=== PATIENT | female | born 1975 | race Hispanic/Latino ===

== ENCOUNTER 2018-02-24 15:18 | Outpatient (CLI) | payer OTHER | END 2018-02-24 15:19 | disposition home or self-care (01) | LOC: BICMAMMO 15:18 | PROVIDERS: ATTEND Family Medicine | DX: Z12.31 Encounter for screening mammogram for malignant neoplasm of breast (principal); Z80.3 Family history of malignant neoplasm of breast | CPT/HCPCS: 77063; 77067 ==

== ENCOUNTER 2020-07-04 09:32 | Outpatient (CLI) | payer OTHER ==
--- NOTE | 2020-07-04 10:37 | BD ---
EXAM: Bone densitometry using DEXA HISTORY: 44 yo female. Screening for osteoporosis FINDINGS: L1--bone mineral density 0.834 g/sq cm; T score -1.4 ; Z score 0.9 L2--bone mineral density 0.927 g/sq cm; T score -0.9 ; Z score -0.4 L3--bone mineral density 0.963 g/sq cm; T score -1.1 ; Z score -0.5 L4--bone mineral density 1.013 g/sq cm; T score -0.4 ; Z score 0.1 Total L1-L4--bone mineral density 0.938 g/sq cm; T score -1.0 ; Z score -0.4 Left femoral neck--bone mineral density0.642; T score -1.9 ; Z score -1.6 Total proximal left femur--bone mineral density 0.898; T score -0.4 ; Z score -0.3 IMPRESSION: Osteopenia
== END 2020-07-04 09:33 | disposition home or self-care (01) ==
LOC: BICMAMMO 09:32
PROVIDERS: ATTEND Internal Medicine Hematology & Oncology
DX: M85.89 Other specified disorders of bone density and structure, multiple sites (principal)
CPT/HCPCS: 77080

== ENCOUNTER 2020-08-29 10:01 | Day surgery (SDC) | payer OTHER ==
[~2020-08-29 10:01] MED LIST: ADMIXTURE FEE SC SCH; BORTEZOMIB SC SCH; Dexamethasone 4 MG TAB PO SCH; Zoledronic Acid 4 MG in Sodium Chloride 0.9% 100 ML IVPB SCH
[2020-08-29] MEDS ORDERED: Sodium Chloride 0.9% 20 ML ONE (10:38)
[2020-08-29 13:46] VITALS: BP 120/58; TEMP 97.5
== END 2020-08-29 13:48 | disposition home or self-care (01) ==
LOC: ONC/OP 10:01
PROVIDERS: ATTEND Internal Medicine Hematology & Oncology
DX: Z51.11 Encounter for antineoplastic chemotherapy (principal); C90.00 Multiple myeloma not having achieved remission; C79.51 Secondary malignant neoplasm of bone
CPT/HCPCS: 96365; 96401; J3489; J3490; J8540; J9041

== ENCOUNTER 2020-08-29 14:28 | Inpatient (IN) | payer OTHER ==
[2020-08-29 14:58] LABS: Hemoglobin 8.6 g/dL (12.0-16.0); Mean Corpuscular HGB CONC 33.8 g/dL (32.0-36.0); Mean Corpuscular Hemoglobin 32.7 pg (27.0-31.0); Mean Corpuscular Volume 96.9 fL (78.0-98.0); Mean Platelet Volume 6.6 fL (7.4-10.4); Platelet Count 290 thou/uL (130-400); RBC Distribution Width 11.7 % (11.5-14.5); Red Blood Cell (RBC) Count 2.63 mill/uL (4.20-5.40)
[2020-08-29 15:13] LABS: Band 8 % (5-11); Lymphocytes 14 % (21-51); MDiff Complete? YES; Monocytes 1 % (0-10); Myelocyte 1 % (0-0); Neutrophil 73 % (42-75); Ovalocytes SLIGHT = 2-5 cells (100X) (0-1/hpf); Platelet Morphology Comment Appears Adequate; Polychromasia SLIGHT = 2-3 cells (100X) (0-2/hpf); Reactive Lymphocytes 2 % (0-10)
[2020-08-29 15:19] LABS: ALT (SGPT) 9 U/L (8-55); AST (SGOT) 8 U/L (5-34); Albumin 3.6 g/dL (3.5-5.0); Alkaline Phosphatase 100 U/L (40-110); Anion Gap 19 mmol/L (10-20); BUN (Urea Nitrogen) 64 mg/dL (7.0-18.7); Bilirubin, Total 0.3 mg/dL (0.2-1.2); Calc. Creatinine Clearance 0 mL/min (70-130); Carbon Dioxide 19 mmol/L (22-29); Chloride 94 mmol/L (98-107); Globulin 3.2 g/dL (2.4-3.5); Glucose 381 mg/dL (70-105); Potassium 4.7 mmol/L (3.5-5.1); Protein, Total 6.8 g/dL (6.0-8.3); Sodium 127 mmol/L (136-145)
[2020-08-29 15:22] LABS: Calcium 13.9 mg/dL (7.8-10.44)
[2020-08-29 15:38] LABS: ALT (SGPT) 11 U/L (8-55); AST (SGOT) 9 U/L (5-34); Albumin 3.6 g/dL (3.5-5.0); Alkaline Phosphatase 105 U/L (40-110); Bilirubin, Direct 0.2 mg/dL (0.1-0.3); Bilirubin, Total 0.3 mg/dL (0.2-1.2); Lipase 37 U/L (8-78); Protein, Total 6.6 g/dL (6.0-8.3)
[2020-08-29 17:07] LABS: Bacteria/HPF 2+ HPF (None Seen); Bilirubin Negative (Negative); Blood, Urine 1+ (Negative); Clarity Clear (Clear); Glucose, Urine (Dipstick) 500 mg/dL (Negative); Ketone, Urine Negative (Negative); Leukocyte 75 Leu/uL (Negative); Nitrite Negative (Negative); Protein, Urine (Dipstick) 50 mg/dL (Neg-Trace); RBC/HPF 0-3 HPF (0-3); Specific Gravity, Urine 1.009 (1.002-1.036); Urobilinogen Normal mg/dL (Less than 2)
[2020-08-29 17:08] LABS: Pregnancy Test - Urine (BHCG) Negative (Negative); Pregu Control Background? CLEAR/WHITE (CLR/WHITE); Pregu Control Bar Appear? YES (CONTROL BAR); Specific Gravity 1.009 (1.002-1.036)
--- NOTE | 2020-08-29 17:56 | RAD ---
Left hip 2 views HISTORY: Hip pain. Multiple myeloma. FINDINGS: Mild joint space narrowing, osteophytosis, and subchondral sclerosis. Femoral head contour is maintained. There are innumerable ill-defined lytic lesions throughout all of the visualized osseous structures. The largest is at the proximal femoral shaft, 2.4 cm length. The lytic lesions in involve the acetabulum and femoral head without significant collapse evident. No fractures apparent. IMPRESSION : Mild osteoarthritic changes of the left hip. Extensive widespread myelomatous lesions. No fractures evident.
--- NOTE | 2020-08-29 18:01 | RAD ---
Left femur 2 views HISTORY: Pain. Myeloma. FINDINGS: Mild osteoarthritic changes of the hip and knee evident. No fractures visible. Extensive destructive lytic lesions are present throughout the femur, fibula, and partially visualize d pelvis. The largest is at the anterior lateral aspect of the distal femoral shaft, where there is a 3.1 cm long gap of cortical destruction. Large lesions also involve the greater and lesser trochanters of the hip. IMPRESSION : Severe myelomatous lytic disease. No fractures evident. The largest lesion involving the distal femur may put the patient at risk for a pathologic fracture. Discontinuing weightbearing might be considered.
--- NOTE | 2020-08-29 18:02 | PDOC.HHP ---
Hospitalist HPI - History of Present Illness Sent to the ER for acute renal failure and hypercalcemia History of Present Illness: This is a 44-year-old female with a past medical history of newly diagnosed multiple myeloma last July who presented to the ER after she was found to have a creatinine of 6 and a calcium of 14. The patient states that 2 months ago she was having pain in both of her legs. They did x-rays on her legs which appeared cancerous. She went to see an oncologist who did additional blood work which confirmed the diagnosis of multiple myeloma. This morning she had blood work at [facility] prior to starting chemotherapy and revlemid today with Dr. Perez. After she completed her therapy and went home, the lab called her and told her to come to the hospital. The patient was admitted in [facility] for acute renal failure and hypercalcemia in July. She does not recall what treatments she received, but she remembers that she was supposed to follow-up with a kidney doctor but did not get around to it. She denies dysuria, frequency, urgency, oliguria. She denies abdominal pain. She had nausea and vomiting 2 days ago which is since resolved. She denies diarrhea. She denies any history of kidney stones. Per Dr. Perez, she had a creatinine 06/18 which was 0.75 and calcium of 10.1. She received Velcade and zoledronic acid this morning. ED Course: Patient presented to the ER with normal vitals except for blood pressure of 159/84. Labs showed a sodium of 127, creatinine of 6.5, and calcium of 13.9. Patient was given 1 L fluid and was started on normal saline at 100 an hour. Patient was having left-sided hip pain in the left hip x-ray showed severe myelomatous disease in her left hip. Hospitalist ROS - Review of Systems Constitutional: denies: fever, chills Eyes: denies: pain, vision change ENT: reports: other (Left mandibular molar pain with chewing) Respiratory: denies: cough, dry, shortness of breath, pleuritic pain Cardiovascular: denies: chest pain, palpitations, orthopnea Gastrointestinal: reports: nausea (Few days ago). denies: abdominal pain, diarrhea, constipation Musculoskeletal: denies: neck pain, shoulder pain, arm pain Skin: denies: rash, lesions Neurological: denies: weakness, numbness Hospitalist History - Past Medical History Cardiac: reports: HTN, Hyperlipidemia Endocrine: reports: Diabetes - Past Surgical History Other Surgical History: None - Family History Other Family History: Mom had diabetes, hypertension, high cholesterol, breast cancer and lung cancer - Social History Smoking Status: Never smoker Alcohol: reports: None Drugs: reports: none Living Situation: Other (With ) - Exam General Appearance: NAD, awake alert Eye: PERRL, anicteric sclera ENT: normocephalic atraumatic, no oropharyngeal lesions Neck: no JVD Heart: RRR, no murmur, no gallops, no rubs Respiratory: CTAB, no wheezes, no rales, no ronchi Gastrointestinal: soft, non-tender, non-distended, normal bowel sounds Extremities: no cyanosis, no clubbing, no edema Skin: normal turgor, no lesions, no rashes Neurological: cranial nerve grossly intact, normal sensation to touch, no focal deficits, no new deficit Musculoskeletal: normal tone, normal strength, no muscle wasting Musculoskeletal - other findings: severe left hip tenderness, difficulty lifting left leg secondary to pain Psychiatric: normal affect, normal behavior, A&O x 3, oriented to person Hospitalist Results - Labs Result Diagrams: 08/29/20 14:49 08/29/20 14:49 Lab results: WBC 6.0 thou/uL (4.8-10.8) 08/29/20 14:49 Hgb 8.6 g/dL (12.0-16.0) L 08/29/20 14:49 Hct 25.4 % (36.0-47.0) L 08/29/20 14:49 MCV 96.9 fL (78.0-98.0) 08/29/20 14:49 Plt Count 290 thou/uL (130-400) 08/29/20 14:49 Band Neuts % (Manual) 8 % (5-11) 08/29/20 14:49 Sodium 127 mmol/L (136-145) L 08/29/20 14:49 Potassium 4.7 mmol/L (3.5-5.1) 08/29/20 14:49 Chloride 94 mmol/L (98-107) L 08/29/20 14:49 Carbon Dioxide 19 mmol/L (22-29) L 08/29/20 14:49 BUN 64 mg/dL (7.0-18.7) H 08/29/20 14:49 Creatinine 6.50 mg/dL (0.6-1.1) H 08/29/20 14:49 Glucose 381 mg/dL (70-105) H 08/29/20 14:49 Calcium 13.9 mg/dL (7.8-10.44) H* 08/29/20 14:49 Total Bilirubin 0.3 mg/dL (0.2-1.2) 08/29/20 14:49 Total Bilirubin 0.3 mg/dL (0.2-1.2) 08/29/20 14:49 AST 8 U/L (5-34) 08/29/20 14:49 AST 9 U/L (5-34) 08/29/20 14:49 ALT 9 U/L (8-55) 08/29/20 14:49 ALT 11 U/L (8-55) 08/29/20 14:49 Alkaline Phosphatase 100 U/L (40-110) 08/29/20 14:49 Alkaline Phosphatase 105 U/L (40-110) 08/29/20 14:49 Serum Total Protein 6.6 g/dL (6.0-8.3) 08/29/20 14:49 Serum Total Protein 6.8 g/dL (6.0-8.3) 08/29/20 14:49 Albumin 3.6 g/dL (3.5-5.0) 08/29/20 14:49 Albumin 3.6 g/dL (3.5-5.0) 08/29/20 14:49 Lipase 37 U/L (8-78) 08/29/20 14:49 Urine Ketones Negative mg/dL (Negative) 08/29/20 16:41 Urine Blood 1+ (Negative) A 08/29/20 16:41 Urine Nitrite Negative (Negative) 08/29/20 16:41 Ur Leukocyte Esterase 75 John/uL (Negative) A 08/29/20 16:41 Urine RBC 0-3 HPF (0-3) 08/29/20 16:41 Urine WBC 11-20 HPF (0-3) A 08/29/20 16:41 Ur Squamous Epith Cells 4-6 HPF (0-3) A 08/29/20 16:41 Urine Bacteria 2+ HPF (None Seen) A 08/29/20 16:41 - EKG Interpretation EKG: normal sinus rhythm Hospitalist H&P A/P - Plan Plan: Left hip X ray: Severe myelomatous lytic disease. This is a 44-year-old female with a past medical history of multiple myeloma, diabetes, hypertension who presented to the emergency room with hypercalcemia and acute renal failure that was discovered on labs drawn this morning at [facility] #Acute renal failure likely secondary to multiple myeloma #Hypercalcemia likely secondary to multiple myeloma -Patient presented with a creatinine of 6.5 and a calcium of 14. Unclear what her baseline creatinine was in July at [facility]. We will obtain those records. Her last creatinine prior to that was normal on 06/18 Plan: -We will give 2 L bolus and start on normal saline 100 mL. Check bilateral renal ultrasound. Nephrology was consulted. -She has received zoledronic acid this morning. We will start dexamethasone [address] Perez for hypercalcemia and will also give calcitonin one injection 200 mg per neurology. Repeat calcium level in the morning #Multiple myeloma -Status post Velcade and Zometa this morning. Per Dr. Perez, we will hold off on Revlimid due to her acute renal failure. Dr. Perez may consider giving her Cytoxan inpatient #Hyponatremia -Sodium is 127. Will hydrate with IV fluids and repeat BMP #Left hip pain -Left hip x-ray shows extensive myelomatous lesions. Will order PT and make her nonweightbearing to her left leg #Anemia -likely secondary to multiple myeloma -Hemoglobin 8.6, will continue to trend. Check B12 folate TSH in the morning. Check iron panel in the morning #Type 2 diabetes - insulin sliding scale, fingersticks AC at bedtime - continue gabapentin #Hypertension -Hold Imdur Dispo: admit to tele, then transfer to oncology when calcium improves Code status: full code
[2020-08-29] MEDS ORDERED: Senokot S 8.6-50 MG TAB PO PRN (18:04)
[2020-08-29] MEDS ORDERED: Bisacodyl 5 MG TAB PO PRN (18:04)
[2020-08-29] MEDS ORDERED: Sodium Chloride 0.9% 1,000 ML IV SCH (19:00)
[2020-08-29] MEDS ORDERED: Calcitonin,Salmon,Synthetic 200 UNITS/ML MDV SC SCH ×2 (19:45)
[2020-08-29] MEDS: Sodium Chloride 0.9% 1,000 ML IV SCH ×3 (19:57→22:38)
--- NOTE | 2020-08-29 20:36 | ULT ---
Renal sonogram HISTORY: Renal failure. FINDINGS: Right kidney is 10.6 cm length and left is 11.0 cm. Each has a normal appearance without ev idence of mass, stone, or hydronephrosis. Urinary bladder has a normal appearance. Bilateral ureteral jets documented. IMPRESSION : No abnormalities are demonstrated.
[2020-08-29] MEDS: Heparin 5,000 UNITS/ML VIAL SC SCH (21:52)
[2020-08-29] MEDS ORDERED: Dextrose 5% in Water 1,000 ML IV PRN (22:14)
[2020-08-29] MEDS ORDERED: Dextrose 50% Abboject 50 ML SYRINGE SLOW IVP PRN (22:14)
[2020-08-29] MEDS: HYDROcodone/Acetaminophen 5/325 mg Tablet PO PRN (22:26)
[2020-08-29] MEDS: HumaLOG 300 UNITS/3 ML VIAL SC PRN (22:41)
--- NOTE | 2020-08-30 00:56 | CON ---
DATE OF CONSULTATION: 08/29/2020 CONSULTING PHYSICIAN: Adriana Garcia MD REASON FOR CONSULTATION: Hypercalcemia, acute kidney injury. REASON FOR ADMISSION: Abnormal labs. HISTORY OF PRESENT ILLNESS: This is a 44-year-old female with history of multiple myeloma, hypertension, hyperlipidemia, came to the hospital with abnormal labs. She is on treatment with Dr. Perez and was found to have abnormal labs, elevated creatinine and was sent to the hospital. She complains of constipation. No fever or chills. No nausea, vomiting, or chest pain. She has been having poor p.o. intake in the last few days. Her last creatinine on 06/18 was 0.75, calcium was 10.1. She received alkaline zoledronic acid this morning. PAST MEDICAL HISTORY: Positive for hypertension, hyperlipidemia, and diabetes. PAST SURGICAL HISTORY: None. HOME MEDICATIONS: Reviewed. ALLERGIES: NO KNOWN DRUG ALLERGIES. SOCIAL HISTORY: No smoking, alcohol, or illicit drug use. FAMILY HISTORY: Positive for diabetes. REVIEW OF SYSTEMS: CONSTITUTIONAL: Negative for weight loss or gain, ability to conduct usual activities. SKIN: Negative for rash, itching. EYES: Negative for double vision, pain. ENT/MOUTH: Negative for nose bleeding, neck stiffness, pain, tenderness. CARDIOVASCULAR: Negative for palpitations, dyspnea on exertion, orthopnea. RESPIRATORY: Negative for shortness of breath, wheezing, cough, hemoptysis, fever or night sweats. GASTROINTESTINAL: Negative for poor appetite, abdominal pain, heartburn, nausea, vomiting, constipation, or diarrhea. GENITOURINARY: Negative for urgency, frequency, dysuria, nocturia. MUSCULOSKELETAL: Negative for pain, swelling. NEUROLOGIC/PSYCHIATRIC: Negative for anxiety, depression. ALLERGY/IMMUNOLOGIC: Negative for skin rash, bleeding tendency. PHYSICAL EXAMINATION: GENERAL: This is a well-built female, in no apparent distress. VITAL SIGNS: Reviewed. HEENT: Atraumatic, normocephalic. Oral mucosa is moist. NECK: Supple. CV: S1 and S2 heard. RESPIRATORY: Clear. GI: Abdomen is soft. MUSCULOSKELETAL: No tenderness. No edema. DERMATOLOGIC: No skin rash. NEUROLOGIC: Alert and awake. PSYCHIATRIC: Mood and affect normal. LABORATORY DATA: Hemoglobin 8.6, potassium 4.7, BUN 64, creatinine 6.5, and calcium 13.9. ASSESSMENT AND PLAN: 1. Acute kidney injury, most likely volume depletion. Agree with hydration and consider calcitonin and also dexamethasone. 2. The patient already got zoledronic acid. 3. Hyponatremia. 4. Acidosis. 5. Azotemia. 6. Hypercalcemia. 7. Edema. 8. Hypertension. 9. Anemia. 10. History of multiple myeloma. 11. Proteinuria. 12. Continue hydration. Monitor calcium. We will give a dose of calcitonin and dexamethasone too. Plan discussed with the primary team. Thank you for the consult. We will follow. Job ID: [id number]
[2020-08-30 04:33] LABS: #Lymphocytes 0.4 thou/uL (1.20-3.40); #Monocytes 0.4 thou/uL (0.11-0.59); #Neutrophils 3.5 thou/uL (1.40-6.50); %Eosinophils 0.3 % (0.0-10.0); %Lymphocytes 9.6 % (21.0-51.0); %Monocytes 9.1 % (0.0-10.0); Hemoglobin 7.1 g/dL (12.0-16.0); Mean Corpuscular HGB CONC 33.2 g/dL (32.0-36.0); Mean Corpuscular Hemoglobin 31.8 pg (27.0-31.0); Mean Platelet Volume 6.8 fL (7.4-10.4); Platelet Count 259 thou/uL (130-400); RBC Distribution Width 11.8 % (11.5-14.5); Red Blood Cell (RBC) Count 2.24 mill/uL (4.20-5.40); White Blood Cell (WBC) Count 4.4 thou/uL (4.8-10.8)
[2020-08-30] MEDS: Sodium Chloride 0.9% 1,000 ML IV SCH ×4 (04:43→20:29)
[2020-08-30 04:48] LABS: Uric Acid 10.6 mg/dL (2.6-6.0)
[2020-08-30 04:49] LABS: Phosphorus 7.5 mg/dL (2.3-4.7)
[2020-08-30 05:03] LABS: ALT (SGPT) 8 U/L (8-55); AST (SGOT) 20 U/L (5-34); Albumin 2.9 g/dL (3.5-5.0); Alkaline Phosphatase 87 U/L (40-110); Anion Gap 16 mmol/L (10-20); BUN (Urea Nitrogen) 69 mg/dL (7.0-18.7); Bilirubin, Total 0.2 mg/dL (0.2-1.2); Calc. Creatinine Clearance 11 mL/min (70-130); Calcium 10.5 mg/dL (7.8-10.44); Carbon Dioxide 17 mmol/L (22-29); Chloride 102 mmol/L (98-107); Globulin 2.5 g/dL (2.4-3.5); Glucose 342 mg/dL (70-105); Iron 74 ug/dL (50-170); Iron Binding Capacity, Total 188 mcg/dL (265-497); Potassium 4.4 mmol/L (3.5-5.1); Protein, Total 5.4 g/dL (6.0-8.3); Sodium 131 mmol/L (136-145)
[2020-08-30 05:09] LABS: Ferritin 273.61 ng/mL (10-291)
[2020-08-30 06:02] LABS: Thyroid Stimulating Hormone 0.881 uIU/mL (0.35-4.94)
[2020-08-30] MEDS: HumaLOG 300 UNITS/3 ML VIAL SC PRN ×3 (06:13→16:21)
[2020-08-30] MEDS: Heparin 5,000 UNITS/ML VIAL SC SCH ×2 (08:54→20:29)
[2020-08-30] MEDS ORDERED: Dexamethasone 4 MG TAB PO SCH ×2 (09:00→11:30)
[2020-08-30] MEDS ORDERED: Prevnar 13-Val Conj/PF 0.5 ML SYRINGE IM ONE (09:00)
[2020-08-30] MEDS ORDERED: Enoxaparin Sodium 30 MG/0.3 ML SYRINGE SC SCH (09:00)
[2020-08-30] MEDS ORDERED: FLU VACC QS2020-21(6MOS UP)/PF 60 MCG/0.5 ML SYRINGE IM ONE (09:00)
[2020-08-30 10:01] LABS: SARS-CoV-2 MS2 Positive; SARS-CoV-2 N Gene Negative; SARS-CoV-2 S Gene Negative; SARS-CoV-2 by NAA Not Detected (NotDetected); SARS-CoV-2 orf1ab Negative
[2020-08-30] MEDS: HYDROcodone/Acetaminophen 5/325 mg Tablet PO PRN (10:21)
--- NOTE | 2020-08-30 13:08 | PDOC.HOSPP ---
- Subjective Encounter Date: 08/30/20 Encounter Time: 09:10 Subjective: Patient spouse is at bedside. Both of them Croatian-speaking with limited Canadian. I was able to communicate with him through the [employer] victim witness administrator. Patient is wondering about whether she will be getting some kind of compression stocking for her left leg. - Objective Vital Signs & Weight: Vital Signs (12 hours) Temp Pulse Resp BP Pulse Ox 08/30/20 11:11 98.5 F 85 18 95/51 L 97 08/30/20 07:51 98.2 F 88 18 111/55 L 96 08/30/20 04:00 98.0 F 86 16 106/54 L 93 L Weight Admit Weight 128 lb 4.8 oz Weight 128 lb 4.8 oz I&O: 08/29/20 08/30/20 08/31/20 06:59 06:59 06:59 Intake Total 1885 Output Total 900 Balance 985 Result Diagrams: 08/30/20 04:22 08/30/20 04:22 Additional Labs: Accuchecks 08/30/20 08/30/20 08/29/20 10:41 06:02 21:13 POC Glucose 227 H 314 H 367 H Hospitalist ROS - Medication Medications: Active Medications Generic Name Dose Route Start Last Admin Trade Name Freq PRN Reason Stop Dose Admin Hydrocodone Bitart/Acetaminophen 1 tab 08/29/20 18:04 08/30/20 10:21 Hydrocodone/Acetaminophen 5/325 Mg Tablet PO 1 tab Q4H PRN Administration Moderate to Severe Pain (6-10) Dexamethasone 20 mg 08/30/20 11:30 08/30/20 11:52 Dexamethasone 4 Mg Tab PO 08/30/20 14:00 20 mg NOW SANTOS Administration Heparin Sodium (Porcine) 5,000 units 08/29/20 21:00 08/30/20 08:54 Heparin 5,000 Units/Ml Vial SC 5,000 units BID SANTOS Administration Sodium Chloride 1,000 mls @ 75 mls/hr 08/30/20 09:54 08/30/20 10:08 Normal Saline 0.9% IV 699 mls .[id number] SANTOS Administration Insulin Human Lispro 0 units 08/29/20 22:14 08/30/20 11:15 Humalog 300 Units/3 Ml Vial SC 4 unit .MODERATE SLIDING SC PRN Administration Moderate Correctional Scale Sodium Chloride 10 ml 08/29/20 21:00 08/30/20 08:54 Flush - Normal Saline 10 Ml Syringe IVF Not Given Q12HR SANTOS - Exam General Appearance: NAD, awake alert Eye: PERRL ENT: normocephalic atraumatic Neck: supple Heart: RRR, normal peripheral pulses Respiratory: CTAB Gastrointestinal: soft, normal bowel sounds Extremities: 1+ LE edema Neurological: no focal deficits Psychiatric: A&O x 3 Hosp A/P - Plan 44-year-old female with a past medical history of multiple myeloma, diabetes, hy pertension came w.. hypercalcemia and acute renal failure that was discovered on labs drawn this morning at [facility] #Acute renal failure likely secondary to multiple myeloma #Hypercalcemia likely secondary to multiple myeloma -Patient presented with a creatinine of 6.5 and a calcium of 14. Her last creatinine prior to that was normal on 06/18 Plan: -We will give 2 L bolus and start on normal saline 100 mL. Check bilateral renal ultrasound. Nephrology was consulted. -She has received zoledronic acid this morning. We will start dexamethasone [address] Perez for hypercalcemia and will also give calcitonin one inje ction 200 mg per neurology. Repeat calcium level in the morning -Renal ultrasound no abnormalities noted. - little improvement in creatinine level today. #Multiple myeloma -Status post Velcade and Zometa this morning. Per Dr. Perez, we will hold off on Revlimid due to her acute renal failure. Dr. Perez may consider giving her Cytoxan inpatient #Hyponatremia -Sodium is 127. Will hydrate with IV fluids and repeat BMP #Left hip pain -Left hip x-ray shows extensive myelomatous lesions. Will order PT and make her nonweightbearing to her left leg Mild osteoarthritis changes #Anemia -likely secondary to multiple myeloma -Hemoglobin 8.6, will continue to trend. #Type 2 diabetes - insulin sliding scale, fingersticks AC at bedtime - continue gabapentin #Hypertension -Hold Imdur B12 folate TSH are in normal range. Vitamin D deficiency -Started her on p.o. supplement Dispo: admit to tele, then transfer to oncology when calcium improves Code status: full code
[2020-08-30 13:48] LABS: Hemoglobin 7.5 g/dL (12.0-16.0)
[2020-08-30] MEDS ORDERED: CYCLOPHOSPHAMIDE IVPB SCH (15:15)
[2020-08-30] MEDS ORDERED: Ondansetron HCl/PF 8 MG in Sodium Chloride 0.9% 50 ML IVPB SCH (15:15)
[2020-08-30] MEDS ORDERED: SODIUM CHLORIDE 0.9% IVPB SCH (15:15)
--- NOTE | 2020-08-30 17:06 | PRG ---
DATE OF SERVICE: 08/30/2020 SUBJECTIVE: Patient was seen and examined at bedside and overnight events noted. Patient denies any shortness of breath or chest pain or palpitation. No history of nausea or vomiting or diarrhea or fever or chills or cramps. OBJECTIVE: GENERAL: This is a well-built female, in no apparent distress. VITAL SIGNS: Temperature 99.5. Heart rate 97. Respiratory rate 18. Blood pressure 129/60. HEENT: Atraumatic, normocephalic. Oral mucosa is moist. NECK: Supple. CARDIOVASCULAR: S1, S2 heard. Rate and rhythm regular. RESPIRATORY: Clear to auscultation. GASTROINTESTINAL: Abdomen is soft. MUSCULOSKELETAL: No tenderness. No edema. DERMATOLOGIC: No skin rash. NEUROLOGIC: Alert and awake and oriented x3. No focal neurologic deficits. Moving all the extremities. PSYCHIATRIC: Mood and affect normal. LABORATORY DATA: Potassium 4.4, BUN is 69, creatinine is 5.8, calcium is 10.5 from 14, and phosphorus 7.5. ASSESSMENT AND PLAN: 1. Acute kidney injury secondary to volume depletion and hypercalcemia, getting better with IV hydration. We will monitor. 2. Calcium level is much better. 3. Hypercalcemia, much better. 4. History of multiple myeloma. 5. Acidosis. 6. Azotemia. 7. Anemia secondary to myeloma. 8. Proteinuria. We will monitor labs. Job ID: [id number]
[2020-08-30] MEDS: Insulin Regular 300 UNITS/3 ML VIAL SC PRN (20:28)
[2020-08-31] MEDS: HYDROcodone/Acetaminophen 5/325 mg Tablet PO PRN (02:06)
[2020-08-31 02:47] LABS: Creatinine, Urine Less than 20.00 mg/dL (47-110); Protein, Urine Random Quant 106 mg/dL (1-14)
[2020-08-31 04:28] LABS: #Eosinphils 0.1 thou/uL (0.0-0.7); #Lymphocytes 0.1 thou/uL (1.20-3.40); #Monocytes 0.1 thou/uL (0.11-0.59); #Neutrophils 2.9 thou/uL (1.40-6.50); %Eosinophils 1.8 % (0.0-10.0); %Monocytes 2.3 % (0.0-10.0); %Neutrophils 91.9 % (42.0-75.0); Hemoglobin 7.4 g/dL (12.0-16.0); Mean Corpuscular HGB CONC 34.4 g/dL (32.0-36.0); Mean Corpuscular Hemoglobin 33.3 pg (27.0-31.0); Mean Corpuscular Volume 96.7 fL (78.0-98.0); Mean Platelet Volume 7.1 fL (7.4-10.4); Platelet Count 217 thou/uL (130-400); RBC Distribution Width 11.8 % (11.5-14.5); Red Blood Cell (RBC) Count 2.23 mill/uL (4.20-5.40); White Blood Cell (WBC) Count 3.1 thou/uL (4.8-10.8)
[2020-08-31 05:13] LABS: Anion Gap 20 mmol/L (10-20); BUN (Urea Nitrogen) 77 mg/dL (7.0-18.7); Calc. Creatinine Clearance 11 mL/min (70-130); Calcium 8.9 mg/dL (7.8-10.44); Carbon Dioxide 12 mmol/L (22-29); Chloride 102 mmol/L (98-107); Glucose 320 mg/dL (70-105); Potassium 5.3 mmol/L (3.5-5.1); Sodium 129 mmol/L (136-145)
[2020-08-31] MEDS: HumaLOG 300 UNITS/3 ML VIAL SC PRN ×3 (05:28→17:01)
--- NOTE | 2020-08-31 05:29 | CON ---
DATE OF CONSULTATION: REASON FOR CONSULTATION: Myeloma. HISTORY OF PRESENT ILLNESS: A 44-year-old female with lambda light chain myeloma, presenting to the hospital for acute kidney injury and hypercalcemia. The patient initially presented with leg pain in May 2020 and found to have multiple lytic lesions, so she was referred to me and was diagnosed with lambda light chain myeloma. At that time, her urine lambda light chains were 8936, and serum lambda light chains were 2080, and she had a creatinine of 0.75 and hemoglobin of 12. She is planned to start Velcade, Revlimid, and dexamethasone. However, she did not have insurance and took a very long time to get financial assistance. She came in Tuesday to finally start treatment and received Velcade and Zometa and went home. Later yesterday, her labs returned and her hemoglobin were found to be 7.7, and creatinine was found to be 6.62 with a calcium level of 13.7 and albumin of 3.3, so corrected over 14. She was called and told to go to the emergency room and she was admitted to telemetry. She has received a few liters of normal saline and creatinine has improved to 5.88 this morning and calcium has improved to 10.5, though with an albumin of 2.9, still elevated to approximately 11.4. She complains of pain in her chest and clavicles in addition to severe leg pain, especially on her left leg, which hurts to move. She is unable to ambulate secondary to pain, but does have reserve of strength. X-rays of the hip and leg revealed multiple lytic lesions, but no fractures. Her left femur is high risk for fracture, so may be having a brace placed to prevent her from moving it. She denies any other symptoms at this time other than fatigue. Her is at the bedside. REVIEW OF SYSTEMS: Ten-point review of systems negative except as per HPI. PAST MEDICAL HISTORY: Diabetes, hypertension, hyperlipidemia, and myeloma. PAST SURGICAL HISTORY: None. FAMILY HISTORY: Breast cancer and lung cancer in her family. SOCIAL HISTORY: No smoking or alcohol. Lives with her . CURRENT MEDICATIONS: Reviewed. PHYSICAL EXAMINATION: VITAL SIGNS: Temperature 98.2, pulse 88, respirations 18, saturating 96% on room air, and blood pressure 111/55. GENERAL APPEARANCE: The patient is lying in bed, in no acute distress. HEENT: Normocephalic and atraumatic. RESPIRATIONS: Clear to auscultation bilaterally. CARDIOVASCULAR: S1 and S2. Regular rate and rhythm with a 2/6 systolic ejection murmur. ABDOMEN: Soft, nondistended, and nontender. NEUROLOGIC: Cranial nerves II through XII are grossly intact, and she can move bilateral lower extremities. The left is restricted due to pain. PSYCHIATRIC: Awake, alert, and oriented x3. LABORATORY DATA: White blood cells 4.4, hemoglobin 7.1, and platelets 259. Uric acid 10.6, calcium 10.5 with albumin to 2.9, creatinine 5.88, potassium 4.4, and phosphorus 7.5. ASSESSMENT AND PLAN: A 44-year-old female with lambda light chain myeloma with hypercalcemia and acute kidney injury. 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 We will continue IV fluids for kidney dysfunction, hypercalcemia. She has already received hypercalcemia and I believe a dose of calcitonin. She is also receiving steroids, which should help both her kidneys and her hypercalcemia. She has received Velcade and advised to hold Revlimid due to kidney function. We will attempt to get a dose of Cytoxan inpatient since we cannot use Revlimid for her treatment, but unknown if this will dramatically improve her kidney function, but at least will treat her underlying myeloma. We will increase dexamethasone to 40 mg per day for another few days and if she has improvement or resolution of her kidney dysfunction, she will be able to be discharged. The patient and state understanding. We will follow closely with you. Job ID: [id number] [facility]
[2020-08-31] MEDS: Dexamethasone 4 MG TAB PO SCH (09:35)
[2020-08-31] MEDS: Heparin 5,000 UNITS/ML VIAL SC SCH ×2 (09:37→20:29)
[2020-08-31] MEDS: Ondansetron PF 4 MG/2 ML Vial IVP PRN (09:43)
--- NOTE | 2020-08-31 11:43 | PDOC.MOPN ---
Interval History: Pt feeling ok today. Chest pain persists only on movement. Left leg pain slightly improved. Advised her to not weight-bear on her left leg due to risk for fracture. - Vital Signs Vital Signs: Vital Signs (12 hours) Temp Pulse Resp BP Pulse Ox 08/31/20 07:05 97.7 F 73 18 134/64 98 08/31/20 04:00 98.0 F 77 16 130/64 97 Weight Admit Weight 128 lb 4.8 oz Weight 128 lb 4.8 oz - Physical Exam General: Alert, Oriented x3, Cooperative HEENT: EOMI Lungs: Normal air movement Cardiovascular: Regular rate Extremities: Other (limited movement of left leg due to pain) Neurological: Cranial nerves 3-12 NL - Labs Result Diagrams: 08/31/20 04:10 08/31/20 04:10 Lab results: Laboratory Results - last 24 hr 08/31/20 10:41: POC Glucose 339 H 08/31/20 05:26: POC Glucose 283 H 08/31/20 04:10: WBC 3.1 L, RBC 2.23 L, Hgb 7.4 L, Hct 21.6 L, MCV 96.7, MCH 33.3 H, MCHC 34.4, RDW 11.8, Plt Count 217, MPV 7.1 L, Neutrophils % 91.9 H, Lymphocytes % 4.0 L, Monocytes % 2.3, Eosinophils % 1.8, Basophils % 0.0, Neutrophils # 2.9, Lymphocytes # 0.1 L, Monocytes # 0.1 L, Eosinophils # 0.1, Basophils # 0.0 08/31/20 04:10: Sodium 129 L, Potassium 5.3 H, Chloride 102, Carbon Dioxide 12 L, Anion Gap 20, BUN 77 H, Creatinine 5.91 H, Estimated GFR (MDRD) 8, Glucose 320 H, Calcium 8.9 08/30/20 20:13: POC Glucose 268 H 08/30/20 16:17: POC Glucose 277 H 08/30/20 13:31: Hgb 7.5 L, Hct 20.9 L 08/30/20 02:04: U Random Total Protein 106 H, Urine Creatinine Less than 20.00 L A/P - Problem (1) Myeloma Current Visit: Yes Code(s): C90.00 - MULTIPLE MYELOMA NOT HAVING ACHIEVED REMISSION Status: Acute (2) Hypercalcemia Current Visit: Yes Code(s): E83.52 - HYPERCALCEMIA Status: Acute (3) Acute kidney failure Current Visit: Yes Status: Acute (4) Anemia Current Visit: Yes Code(s): D64.9 - ANEMIA, UNSPECIFIED Status: Acute - Plan Plan: -- C1D3 of Velcade: s/p 1 dose of Cytoxan 900 mg/m2 yesterday (Velcade D1,4,8,11) -- hypercalcemia resolved -- JEFFRY not improving Cont IVF Dex 40 mg qday x 5 days total: last dose Tuesday, then on days of Velcade Velcade tomorrow Continue holding Revlimid will d/w RadOnc if palliative XRT to left femur can be done for pain control and reduce risk of fracture
[2020-08-31] MEDS ORDERED: Sodium Bicarbonate 150 MEQ in Dextrose 5% in Water 1,000 ML IV SCH (11:45)
--- NOTE | 2020-08-31 12:53 | PDOC.HOSPP ---
- Subjective Encounter Date: 08/31/20 Encounter Time: 09:45 Subjective: I have explained to the patient that she needs to be on steroid and probably another 2 to 3days. His kidney function has not improved much creatinine around 5.9. - Objective Vital Signs & Weight: Vital Signs (12 hours) Temp Pulse Resp BP Pulse Ox 08/31/20 07:05 97.7 F 73 18 134/64 98 08/31/20 04:00 98.0 F 77 16 130/64 97 Weight Admit Weight 128 lb 4.8 oz Weight 128 lb 4.8 oz I&O: 08/30/20 08/31/20 09/01/20 06:59 06:59 06:59 Intake Total 1885 Output Total 900 Balance 985 Result Diagrams: 08/31/20 04:10 08/31/20 04:10 Additional Labs: Accuchecks 08/31/20 08/31/20 08/30/20 10:41 05:26 20:13 POC Glucose 339 H 283 H 268 H 08/30/20 16:17 POC Glucose 277 H Hospitalist ROS - Medication Medications: Active Medications Generic Name Dose Route Start Last Admin Trade Name Freq PRN Reason Stop Dose Admin Hydrocodone Bitart/Acetaminophen 1 tab 08/29/20 18:04 08/31/20 02:06 Hydrocodone/Acetaminophen 5/325 Mg Tablet PO 1 tab Q4H PRN Administration Moderate to Severe Pain (6-10) Dexamethasone 40 mg 08/31/20 09:00 08/31/20 09:35 Dexamethasone 4 Mg Tab PO 09/02/20 09:01 40 mg DAILY SANTOS Administration Heparin Sodium (Porcine) 5,000 units 08/29/20 21:00 08/31/20 09:37 Heparin 5,000 Units/Ml Vial SC 5,000 units BID SANTOS Administration Insulin Human Lispro 0 units 08/29/20 22:14 08/31/20 11:35 Humalog 300 Units/3 Ml Vial SC 8 unit .MODERATE SLIDING SC PRN Administration Moderate Correctional Scale Insulin Human Regular 0 units 08/29/20 22:14 08/30/20 20:28 Insulin Regular 300 Units/3 Ml Vial SC 3 unit .BEDTIME SLIDING SC PRN Administration Bedtime Correctional Scale Ondansetron HCl 4 mg 08/29/20 18:04 08/31/20 09:43 Ondansetron Pf 4 Mg/2 Ml Vial IVP 4 mg Q6H PRN Administration Nausea/Vomiting Sodium Chloride 10 ml 08/29/20 21:00 08/31/20 10:05 Flush - Normal Saline 10 Ml Syringe IVF 10 ml Q12HR SANTOS Administration - Exam General Appearance: NAD, awake alert Eye: PERRL ENT: normocephalic atraumatic Neck: supple Heart: RRR, normal peripheral pulses Respiratory: CTAB, normal chest expansion Gastrointestinal: soft, normal bowel sounds Extremities: no edema Skin: normal turgor Neurological: cranial nerve grossly intact, no focal deficits Musculoskeletal: generalized weakness Psychiatric: normal affect, normal behavior, A&O x 3 Hosp A/P - Plan 44-year-old female with a past medical history of multiple myeloma, diabetes, hypertension came w.. hypercalcemia and acute renal failure that was discovered on labs drawn this morning at [facility] #Acute renal failure likely secondary to multiple myeloma Cast nephropathy #Hypercalcemia likely secondary to multiple myeloma -Patient presented with a creatinine of 6.5 and a calcium of 14. Her last creatinine prior to that was normal on 06/18 Plan: -We will give 2 L bolus and start on normal saline 100 mL. Check bilateral renal ultrasound. Nephrology was consulted. -She has received zoledronic acid this morning. We will start dexamethasone [address] Perez for hypercalcemia and will also give calcitonin one injection 200 mg per neurology. Repeat calcium level in the morning -Renal ultrasound no abnormalities noted. - little improvement in creatinine level today. -Trial of dexamethasone 40 mg daily for 5 days.--Last dose next Tuesday. -Dr. Perez started her on Velcade Radiation oncology consult placed for possible palliative radiation treatment to left femur osteolytic lesions #Multiple myeloma -Status post Zometa and on Velcade . Per Dr. Perez, we will hold off on Revlimid due to her acute renal failure. #Hyponatremia -. Will hydrate with IV fluids and repeat BMP -Sodium did not improve. It remains the same. However I noticed that IV fluid has been discontinued. Will follow along with the renal. #Left hip pain -Left hip x-ray shows extensive myelomatous lesions. Will order PT and make her nonweightbearing to her left leg Mild osteoarthritis changes #Anemia -likely secondary to multiple myeloma -Hemoglobin 8.6, will continue to trend. #Type 2 diabetes We will follow-up on A1c. Not optimally controlled. Initiating scheduled insulin - insulin sliding scale, fingersticks AC at bedtime - continue gabapentin #Hypertension -Hold Imdur B12 folate TSH are in normal range. Vitamin D deficiency -Started her on p.o. supplement Dispo: admit to tele, then transfer to oncology when calcium improves Code status: full code
--- NOTE | 2020-08-31 14:34 | PRG ---
DATE OF SERVICE: 08/31/2020 SUBJECTIVE: Patient was seen and examined at bedside and overnight events noted. Patient denies any shortness of breath or chest pain or palpitation. No history of nausea or vomiting or diarrhea or fever or chills or cramps. OBJECTIVE: GENERAL: This is a well-built female, in no apparent distress. VITAL SIGNS: Temperature 97.7. Heart rate 73. Respiratory rate 18. Blood pressure 134/64. HEENT: Atraumatic, normocephalic. Oral mucosa is moist. NECK: Supple. CARDIOVASCULAR: S1, S2 heard. Rate and rhythm regular. RESPIRATORY: Clear to auscultation. GASTROINTESTINAL: Abdomen is soft. MUSCULOSKELETAL: No tenderness. No edema. DERMATOLOGIC: No skin rash. NEUROLOGIC: Alert and awake and oriented x3. No focal neurologic deficits. Moving all the extremities. PSYCHIATRIC: Mood and affect normal. LABORATORY DATA: Potassium 5.3, BUN 77, and creatinine is 5.9. ASSESSMENT AND PLAN: 1. Acute kidney injury on chronic kidney disease. We will continue on IV fluids. We will change IV fluids to bicarb drip. 2. Acidosis. 3. Hyponatremia. 4. Hyperkalemia. We will have bicarb drip. 5. Proteinuria, most likely from multiple myeloma. 6. History of multiple myeloma. 7. Anemia secondary to myeloma. Plan is to continue on bicarb drip. Monitor labs. Follow with Hem/Onc for myeloma therapy. Job ID: [id number]
[2020-08-31] MEDS: NPH, Human Insulin Isophane 300 UNIT/3 ML VIAL SC SCH (20:29)
[2020-08-31] MEDS: Insulin Regular 300 UNITS/3 ML VIAL SC PRN (20:34)
[2020-09-01] MEDS: HYDROcodone/Acetaminophen 5/325 mg Tablet PO PRN ×3 (00:54→21:32)
[2020-09-01 04:50] LABS: Hemoglobin A1c 8.9 % (4.0-6.0)
[2020-09-01 05:03] LABS: Anion Gap 20 mmol/L (10-20); BUN (Urea Nitrogen) 104 mg/dL (7.0-18.7); Calc. Creatinine Clearance 11 mL/min (70-130); Calcium 7.9 mg/dL (7.8-10.44); Carbon Dioxide 16 mmol/L (22-29); Chloride 97 mmol/L (98-107); Glucose 439 mg/dL (70-105); Potassium 4.7 mmol/L (3.5-5.1); Sodium 128 mmol/L (136-145)
[2020-09-01] MEDS: HumaLOG 300 UNITS/3 ML VIAL SC PRN ×3 (06:06→17:11)
--- NOTE | 2020-09-01 09:18 | PRG ---
DATE OF SERVICE: 09/01/2020 SUBJECTIVE: A 44-year-old female being seen for end-stage kidney disease. The patient denied nausea, vomiting, chest pain. OBJECTIVE: GENERAL: On exam, the patient is awake and alert. VITAL SIGNS: Afebrile, pulse 75, breathing at 16, blood pressure 139/67. HEENT: Head normocephalic and atraumatic. Eyes intact, no ulcers. Nose intact, no ulcers. Ears intact, no ulcers. NECK: Supple. No JVD. CHEST: Symmetrical and clear. CARDIOVASCULAR: Shows S1 and S2, no rub, no murmur. GASTROINTESTINAL: Abdomen is soft, bowel sounds positive. EXTREMITIES: Show no edema or ulcers. SKIN: Shows no rash or petechiae. MUSCULOSKELETAL: Shows no joint swelling or stiffness. GENITOURINARY: Shows no [place] or CVA tenderness. NEUROLOGIC: Motor intact. Cranial nerves intact. LABORATORY DATA: Reviewed. IMPRESSION: Acute kidney injury on chronic kidney disease, stable. no urgent indication for dialysis. We will follow labs closely. Job ID: [id number]
[2020-09-01 09:36] LABS: Kappa Light Chains 19.5 mg/L (3.3-19.4); Lambda Light Chain 13412.3 mg/L (5.7-26.3)
[2020-09-01] MEDS: Dexamethasone 4 MG TAB PO SCH (09:40)
[2020-09-01] MEDS: Heparin 5,000 UNITS/ML VIAL SC SCH ×2 (09:42→21:09)
[2020-09-01] MEDS: NPH, Human Insulin Isophane 300 UNIT/3 ML VIAL SC SCH ×2 (09:42→21:09)
[2020-09-01] MEDS: Sodium Chloride 1 GM TAB PO SCH ×3 (09:50→21:12)
--- NOTE | 2020-09-01 13:29 | PDOC.HOSPP ---
- Subjective Encounter Date: 09/01/20 Encounter Time: 10:20 Subjective: Patient wants to know whether she can get better. Explained through [employer] interpreter. Radiation oncology consult pending. Her sugar is still high. She has A1c of 8.9. - Objective Vital Signs & Weight: Vital Signs (12 hours) Temp Pulse Resp BP Pulse Ox 09/01/20 11:23 97.9 F 70 15 112/61 97 09/01/20 07:32 97.7 F 76 13 147/73 H 97 09/01/20 04:00 97.9 F 75 16 139/67 Weight Admit Weight 128 lb 4.8 oz Weight 128 lb 4.8 oz I&O: 08/31/20 09/01/20 09/02/20 06:59 06:59 06:59 Intake Total 1520 Output Total 1225 Balance 295 Result Diagrams: 08/31/20 04:10 09/01/20 04:19 Additional Labs: Accuchecks 09/01/20 09/01/20 08/31/20 11:08 06:04 20:32 POC Glucose 270 H 360 H 481 H 08/31/20 16:53 POC Glucose 487 H Hospitalist ROS - Medication Medications: Active Medications Generic Name Dose Route Start Last Admin Trade Name Freq PRN Reason Stop Dose Admin Hydrocodone Bitart/Acetaminophen 1 tab 08/29/20 18:04 09/01/20 09:44 Hydrocodone/Acetaminophen 5/325 Mg Tablet PO 1 tab Q4H PRN Administration Moderate to Severe Pain (6-10) Dexamethasone 40 mg 08/31/20 09:00 09/01/20 09:40 Dexamethasone 4 Mg Tab PO 09/02/20 09:01 40 mg DAILY SANTOS Administration Heparin Sodium (Porcine) 5,000 units 08/29/20 21:00 09/01/20 09:42 Heparin 5,000 Units/Ml Vial SC 5,000 units BID SANTOS Administration Insulin Human Lispro 0 units 08/29/20 22:14 09/01/20 11:26 Humalog 300 Units/3 Ml Vial SC 6 unit .MODERATE SLIDING SC PRN Administration Moderate Correctional Scale Insulin Human NPH 7 unit 08/31/20 21:00 09/01/20 09:42 Nph, Human Insulin Isophane 300 Unit/3 Ml Vial SC 7 unit BID SANTOS Administration Insulin Human Regular 0 units 08/29/20 22:14 12/13/20 20:34 Insulin Regular 300 Units/3 Ml Vial SC 5 unit .BEDTIME SLIDING SC PRN Administration Bedtime Correctional Scale Ondansetron HCl 4 mg 08/29/20 18:04 08/31/20 09:43 Ondansetron Pf 4 Mg/2 Ml Vial IVP 4 mg Q6H PRN Administration Nausea/Vomiting Sodium Chloride 10 ml 08/29/20 21:00 09/01/20 09:42 Flush - Normal Saline 10 Ml Syringe IVF 10 ml Q12HR SANTOS Administration Sodium Chloride 2 gm 09/01/20 09:00 09/01/20 09:50 Sodium Chloride 1 Gm Tab PO 09/02/20 10:00 2 gm TID SANTOS Administration - Exam General Appearance: NAD, awake alert Eye: PERRL ENT: normocephalic atraumatic Neck: supple Heart: RRR, normal peripheral pulses Respiratory: CTAB, normal chest expansion Gastrointestinal: soft, normal bowel sounds Neurological: cranial nerve grossly intact, no focal deficits, no new deficit Psychiatric: normal affect, normal behavior, A&O x 3 Hosp A/P - Plan 44-year-old female with a past medical history of multiple myeloma, diabetes, hypertension came w.. hypercalcemia and acute renal failure that was discovered on labs drawn this morning at [facility] #Acute renal failure likely secondary to multiple myeloma Cast nephropathy #Hypercalcemia likely secondary to multiple myeloma -Patient presented with a creatinine of 6.5 and a calcium of 14. Her last creatinine prior to that was normal on 06/18 Plan: -We will give 2 L bolus and start on normal saline 100 mL. Check bilateral renal ultrasound. Nephrology was consulted. -She has received zoledronic acid this morning. We will start dexamethasone [address] Perez for hypercalcemia and will also give calcitonin one injection 200 mg per neurology. Repeat calcium level in the morning -Renal ultrasound no abnormalities noted. - little improvement in creatinine level today. -Trial of dexamethasone 40 mg daily for 5 days.--Last dose next Tuesday. -Dr. Perez started her on Velcade Radiation oncology consult placed for possible palliative radiation treatment to left femur osteolytic lesions #Multiple myeloma -Status post Zometa and on Velcade . Per Dr. Perez, we will hold off on Revlimid due to her acute renal failure. #Hyponatremia -. Will hydrate with IV fluids and repeat BMP -Sodium did not improve. It remains the same. However I noticed that IV fluid has been discontinued. Will follow along with the renal. #Anemia -likely secondary to multiple myeloma -Hemoglobin 8.6, will continue to trend. 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 Vitamin D deficiency -Started her on p.o. supplement #Left hip pain Left femur lytic lesions related to multiple myeloma -Left hip x-ray shows extensive myelomatous lesions. Will order PT and make her nonweightbearing to her left leg Mild osteoarthritis changes --Radiation oncology consult placed. Dispo: admit to tele, then transfer to oncology when calcium improves Code status: full code
--- NOTE | 2020-09-01 14:29 | PDOC.CONS ---
- Consultation Encounter Date: 09/01/20 Encounter Time: 13:08 INITIAL CONSULTATION - RADIATION ONCOLOGY IDENTIFICATION: 44 yo [place]-speaking F with multiple myeloma and innumerable osseous lytic lesions with cortical destruction of bilateral femurs. HISTORY OF PRESENT ILLNESS: Ms. Peter first began having right knee pain and left shoulder pain in summer 2019. When the pain did not resolve, she was ultimately sent for x rays of these joints that showed innumerable lytic lesions with concern for pathologic fracture of left clavicle and right femur. She was diagnosed with lambda light chain multiple myeloma and was seen by medical oncology in June 2020. Initial labs included creatinine 0.75, calcium 10.1, Hgb 12 as well as serum and urine lambda light chain elevation. B2 microglobulin at diagnosis was 4.2. She planned to start Velcade, Revlimid, and dexamethasone, but she was uninsured and there was a delay in obtaining financial assistance. Therefore, she started systemic treatment for multiple myeloma on 08/29/2020. After her labs returned that day, she was instructed to go to ED due to creatinine of 6.6, hemoglobin 7.7, and corrected calcium >14. She was admitted and received NS with some improvement in labs. She has severe p ain in both legs, most prominent in left hip, and so x rays were obtained of the left hip and femur that showed lytic lesions in distal left femur. Therefore, she was made nonweightbearing and PT/OT consulted. Radiation oncology was consulted for consideration of palliative radiotherapy to left femur. Regarding symptoms, Ms. Peter reports pain throughout her whole body. Specifically, there is severe pain in bilateral legs, left worse than right. She cannot localize the pain, instead stating it starts in her hips, through her knees, and extends down to her toes. The left leg pain is present with she moves (up to 8/10) and is down to a 2/10 while at rest. The right leg pain is less severe, but still present when she moves. She additionally reports moderate left scapular and shoulder pain that radiates around to her anterior chest wall, again not able to isolate the pain. She was ambulating prior to this hospitalization with difficulty, but she is now nonweightbearing. She denies numbness, tingling, swelling, or abnormal sensation in BLE. PAST MEDICAL HISTORY: DM2; HTN; HLD; Multiple Myeloma PAST SURGICAL HISTORY: None ALLERGIES: NKDA FAMILY HISTORY: Mother with breast cancer and lung cancer in her 50s SOCIAL HISTORY: Denies tobacco, alcohol, or illicit drug use. Lives with her spouse. PREVIOUS RADIATION: None prior REVIEW OF SYSTEMS: 10-point ROS negative except as per HPI and nursing notes. PHYSICAL EXAM: VITALS: T 97.9, P 70, R 15, O2 97% on RA, BP 112/61 GENERAL: KPS 70. Pleasant female lying in hospital bed in no acute distress. HEENT: Normocephalic, atraumatic. LYMPHATICS: No cervical or supraclavicular adenopathy palpable bilaterally. CARDIOVASCULAR: Regular rate and rhythm. No murmurs, rubs, or gallops. PULMONARY: Clear to auscultation bilaterally. No crackles, wheezes, or rhonchi. BACK: No tenderness to percussion of spinous processes or SI joints. ABDOMEN: Soft, nontender, nondistended. MUSCULOSKELETAL: No peripheral edema. No gross joint deformities. No tenderness to palpation of bilateral thighs, knees, hips, vertebrae, scapulae, or anterior chest wall. NEUROLOGIC: Cranial nerves II-XII intact. Strength 5/5 in upper and lower extremities bilaterally, although lower extremity hip flexion limited due to pain. Sensation to soft touch intact and symmetric in upper and lower ext remities. Did not assess gait. LABS: 09/01/2020: Cr 5.91; BUN 104; Na 128; Ca 7.9; A1c 8.9; Albumin 2.9 08/31/2020: WBC 3.1; Hgb 7.4; Hct 21.6; Plt 216 08/29/2020: LDH 118 06/26/2020: Serum lambda light chains elevated 2080; kappa light chains wnl; M spike in UPEP with lambda light chains 8936; Beta-2 microglobulin 4.2 IMAGING: RIGHT Knee X ray, 06/17/2020: Multiple lytic lesions in femur and fibula with periosteal reaction surrounding largest lesion in distal femur. Right Shoulder X ray, 06/17/2020: Innumerable lytic lesions with pathologic fracture of distal clavicle. LEFT Femur X ray, 08/29/2020: Severe lytic disease, largest anterolateral distal femoral shaft with a 3.1 cm gap of cortical destruction. No fractures. LEFT Hip X Ray, 08/29/2020: Innumerable ill-defined lytic lesions throughout osseous structures, largest at proximal femoral shaft 2.4 cm. No fractures. PATHOLOGY: None for review ASSESMENT/PLAN: 44 yo F with DM2, HTN, HLD, and multiple myeloma, admitted for acute renal failure and hypercalcemia after first Velcade treatment. Radiation oncology was consulted for palliative radiotherapy. She has innumerable lytic lesions, and most recently had LEFT leg x ray with cortical destruction of distal femoral shaft. Upon review of prior imaging and in conjunction with her symptoms involving both legs, she also had RIGHT distal femur cortical destruction and periosteal reaction from May. While radiation would treat the cancer in her femurs as multiple myeloma is quite radiosensitive, she would be left with a structural defect in the bone, and so orthopedic surgery evaluation is recommended given the extent of disease (Mirel's score 11). If surgery is entertained, this should occur prior to radiation. Will follow her inpatient course closely and plan to treat with palliative radiotherapy to bilateral femurs in future. 60 minutes were spent with this patient with greater than 50% of that time spent on counseling and coordination of care. Recap: - Orthopedic surgery consultation placed - Recommend palliative radiation to bilateral distal femurs
[2020-09-01] MEDS: Ondansetron PF 4 MG/2 ML Vial IVP PRN ×2 (14:33→21:33)
--- NOTE | 2020-09-01 15:10 | PDOC.MOPN ---
Interval History: sternal pain only - Vital Signs Vital Signs: Vital Signs (12 hours) Temp Pulse Resp BP BP Pulse Ox 09/01/20 14:10 137/67 09/01/20 11:23 97.9 F 70 15 112/61 97 09/01/20 07:32 97.7 F 76 13 147/73 H 97 09/01/20 04:00 97.9 F 75 16 139/67 Weight Admit Weight 128 lb 4.8 oz Weight 128 lb 4.8 oz - Physical Exam General: Alert, Oriented x3, No acute distress HEENT: Atraumatic, PERRLA, EOMI, Mucous membr. moist/pink Lungs: Clear to auscultation Cardiovascular: Regular rate Abdomen: Normal bowel sounds Neurological: Normal speech Psych/Mental Status: Mental status NL - Labs Result Diagrams: 08/31/20 04:10 09/01/20 04:19 Lab results: Laboratory Results - last 24 hr 09/01/20 11:08: POC Glucose 270 H 09/01/20 06:04: POC Glucose 360 H 09/01/20 04:19: Hemoglobin A1c 8.9 H 09/01/20 04:19: Sodium 128 L, Potassium 4.7, Chloride 97 L, Carbon Dioxide 16 L, Anion Gap 20, BUN 104 H, Creatinine 5.91 H, Estimated GFR (MDRD) 8, Glucose 439 H, Calcium 7.9 08/31/20 20:32: POC Glucose 481 H 08/31/20 16:53: POC Glucose 487 H 08/29/20 20:58: Free Concepcion LC, Quant 19.5 H, Free Lambda LC, Quant 95122.3 H, Free Concepcion/Lambda Ratio 0.00 L Status: lab reviewed by me A/P - Problem (1) Acute kidney failure Current Visit: Yes Status: Acute (2) Anemia Current Visit: Yes Code(s): D64.9 - ANEMIA, UNSPECIFIED Status: Acute (3) Myeloma Current Visit: Yes Code(s): C90.00 - MULTIPLE MYELOMA NOT HAVING ACHIEVED REMISSION Status: Acute - Plan Plan: -- C1D4 of Velcade: s/p 1 dose of Cytoxan 900 mg/m2 yesterday (Velcade D1,4,8,11) -- hypercalcemia resolved -- JEFFRY not improving Dex 40 mg qday x 5 days total: last dose Tuesday, then on days of Velcade Velcade today Continue holding Revlimid XRT saw patient and recommends orthopedic surgery estephanie
[2020-09-01] MEDS ORDERED: PRE FILLED SC SCH ×2 (15:30→15:45)
[2020-09-01] MEDS ORDERED: BORTEZOMIB SC SCH ×2 (15:30→15:45)
--- NOTE | 2020-09-01 16:28 | RAD ---
XR Femur Rt 2 View STANDARD INDICATION: History of multiple myeloma and right femoral lytic lesions COMPARISON: Left hip and left femur radiographs dated August 29, 2020 FINDINGS: Bones: There are numerous lytic lesions seen throughout the right hemipelvis and right femur. There i s a large lytic lesion involving the distal posterior medial metadiaphyseal region measuring 5.1 x 3.5 cm. The lesion involves approximately 60% of the thickness of the distal right femur. There is a prominent lytic lesion involving the proximal fibular neck. Soft tissues: Within normal limits. Joints: There is mild degenerative arthrosis of the right hip and right knee. IMPRESSION: Numerous osteolytic lesions involving the right hemipelvis, right femur and proximal righ t foreleg consistent patient's known history of multiple myeloma. There is a prominent lytic lesion involving the posterior medial aspect of the distal femoral metadiaphyseal region that involves appro ximately 60% of the transverse dimension of the distal left femur putting this patient at risk for a pathologic fracture.
--- NOTE | 2020-09-01 17:51 | CON ---
DATE OF CONSULTATION: 09/01/2020 CONSULTING PROVIDER: MD Courtney. CHIEF COMPLAINT: Left leg pain. HISTORY OF PRESENT ILLNESS: Ms. Peter is a 44-year-old female who has history of multiple myeloma. She has multiple areas of involvement. I was consulted regarding her left femur. She has advanced lytic lesions throughout the left femur with a severe lesion proximal to her knee. She has been having leg pain and difficulty with ambulation. She is in the hospital currently for laboratory abnormalities. She is undergoing ongoing treatment for her multiple myeloma. She is resting comfortably currently. PAST MEDICAL HISTORY: Hypertension, hyperlipidemia, diabetes, and multiple myeloma. PAST SURGICAL HISTORY: Negative. MEDICATIONS: Please see chart. ALLERGIES: NO KNOWN DRUG ALLERGIES. SOCIAL HISTORY: The patient denies tobacco, alcohol, or drug use. FAMILY MEDICAL HISTORY: Diabetes. REVIEW OF SYSTEMS: Positive for left leg pain and left foot pain. Otherwise, negative 10-point review of systems. IMAGES: X-rays of the left femur demonstrate multiple lytic areas in the proximal femur including the intertrochanteric region. She also has lytic areas throughout the shaft of the femur and a large lytic area approximately 5 cm from the knee joint. This has eroded the anterior cortex greater than 50%. PHYSICAL EXAMINATION: VITAL SIGNS: Temperature is 97.9, pulse is 70, respiratory rate 15, oxygen saturation 97%, and blood pressure is 112/61. GENERAL: She is alert, lying supine, no apparent distress. HEENT: Normocephalic and atraumatic. RESPIRATORY: Breathing comfortably. ABDOMEN: Soft, nontender, and nondistended. CARDIOVASCULAR: Pulses palpable and regular. MUSCULOSKELETAL: The patient's left lower extremity has no swelling. Left lower extremity has minimal swelling. Skin is intact. She does have intact neurovascular status distally. She has palpable dorsalis pedis pulse. IMPRESSION: A 44-year-old female with multiple myeloma with lytic lesion of left femur. PLAN: Given the patient's extensive multiple myeloma disease and advanced lytic area of the distal femur with impending fracture, I think she would be a good candidate for intramedullary nail fixation. Goal of surgery would be to prevent fracture and allow her to mobilize without pain while she has ongoing treatment. I have discussed this with her through a video conference specialist. She would like to talk this over with her and make a decision. I am happy to proceed when she is ready. She will have ongoing pain control. She would need DVT prophylaxis postoperatively. She will continue appropriate treatment for her disease. I will discuss this with her again later today or tomorrow morning to see if she wants to proceed at that point. I will keep her n.p.o. tonight after midnight in case we can do surgery tomorrow. Job ID: [id number]
[2020-09-01] MEDS: Insulin Regular 300 UNITS/3 ML VIAL SC PRN (21:13)
[2020-09-02 04:52] LABS: #Lymphocytes 0.2 thou/uL (1.20-3.40); #Monocytes 0.1 thou/uL (0.11-0.59); #Neutrophils 3.6 thou/uL (1.40-6.50); %Basophils 0.5 % (0.0-1.0); %Eosinophils 0.1 % (0.0-10.0); %Lymphocytes 4.8 % (21.0-51.0); %Monocytes 1.8 % (0.0-10.0); %Neutrophils 92.8 % (42.0-75.0); Hemoglobin 7.4 g/dL (12.0-16.0); Mean Corpuscular HGB CONC 34.9 g/dL (32.0-36.0); Mean Corpuscular Hemoglobin 33.2 pg (27.0-31.0); Mean Corpuscular Volume 95.2 fL (78.0-98.0); Mean Platelet Volume 7.7 fL (7.4-10.4); Platelet Count 183 thou/uL (130-400); RBC Distribution Width 11.6 % (11.5-14.5); Red Blood Cell (RBC) Count 2.23 mill/uL (4.20-5.40); White Blood Cell (WBC) Count 3.9 thou/uL (4.8-10.8)
[2020-09-02 05:19] LABS: Anion Gap 17 mmol/L (10-20); BUN (Urea Nitrogen) 101 mg/dL (7.0-18.7); Calc. Creatinine Clearance 11 mL/min (70-130); Calcium 7.3 mg/dL (7.8-10.44); Carbon Dioxide 17 mmol/L (22-29); Chloride 100 mmol/L (98-107); Glucose 272 mg/dL (70-105); Sodium 129 mmol/L (136-145)
[2020-09-02] MEDS: NPH, Human Insulin Isophane 300 UNIT/3 ML VIAL SC SCH ×2 (09:36→20:46)
[2020-09-02] MEDS: Sodium Chloride 1 GM TAB PO SCH (10:02)
[2020-09-02] MEDS: Heparin 5,000 UNITS/ML VIAL SC SCH ×2 (10:02→20:46)
[2020-09-02] MEDS: Dexamethasone 4 MG TAB PO SCH (10:02)
[2020-09-02] MEDS: HumaLOG 300 UNITS/3 ML VIAL SC PRN ×2 (11:05→16:58)
--- NOTE | 2020-09-02 11:38 | PRG ---
DATE OF SERVICE: 09/02/2020 SUBJECTIVE: A 44-year-old female being seen for acute kidney injury. The patient denies any nausea, vomiting, or chest pain. Please note a translation line was used. OBJECTIVE: GENERAL: The patient is awake and alert. VITAL SIGNS: Pulse 73, breathing at 16, blood pressure 145/70. HEENT: Head normocephalic and atraumatic. Eyes intact, no ulcers. Nose intact, no ulcers. Ears intact, no ulcers. NECK: Supple. No JVD. CHEST: Symmetrical and clear. CARDIOVASCULAR: Shows S1 and S2, no rub, no murmur. GASTROINTESTINAL: Abdomen is soft, bowel sounds positive. EXTREMITIES: Show no edema or ulcers. SKIN: Shows no rash or petechiae. MUSCULOSKELETAL: Shows no joint swelling or stiffness. GENITOURINARY: Shows no [place] or CVA tenderness. NEUROLOGIC: Motor intact. Cranial nerves intact. LABORATORY DATA: Reviewed. ASSESSMENT AND PLAN: 1. Chronic kidney disease stage 5. No indication for dialysis. 2. Hypertension, stable. 3. Anemia, stable. 4. Multiple myeloma. We will follow renal function closely. Job ID: [id number]
--- NOTE | 2020-09-02 14:25 | PDOC.HOSPP ---
- Subjective Encounter Date: 09/02/20 Encounter Time: 10:10 Subjective: Patient's daughter at bedside. Had extensive conversation with the patient through her daughter who speaks Algerian. I also discussed with clinical technician Dr. Barbosa - Objective Vital Signs & Weight: Vital Signs (12 hours) Temp Pulse Pulse Pulse Resp BP BP 09/02/20 11:04 98.0 F 73 18 09/02/20 08:50 72 69 149/70 H 161/73 H 09/02/20 07:43 98.3 F 74 17 09/02/20 04:47 98.1 F 70 12 BP Pulse Ox Pulse Ox 09/02/20 11:04 145/70 H 97 09/02/20 08:50 97 09/02/20 07:43 150/68 H 97 09/02/20 04:47 148/69 H 12 L Weight Admit Weight 128 lb 4.8 oz Weight 142 lb 12.8 oz I&O: 09/01/20 09/02/20 09/03/20 06:59 06:59 06:59 Intake Total 1520 960 Output Total 1225 1750 Balance 295 -790 Result Diagrams: 09/02/20 04:12 09/02/20 04:12 Additional Labs: Accuchecks 09/02/20 09/02/20 09/01/20 10:31 05:40 20:28 POC Glucose 213 H 236 H 344 H 09/01/20 17:05 POC Glucose 299 H Hospitalist ROS - Medication Medications: Active Medications Generic Name Dose Route Start Last Admin Trade Name Freq PRN Reason Stop Dose Admin Hydrocodone Bitart/Acetaminophen 1 tab 08/29/20 18:04 09/01/20 21:32 Hydrocodone/Acetaminophen 5/325 Mg Tablet PO 1 tab Q4H PRN Administration Moderate to Severe Pain (6-10) Heparin Sodium (Porcine) 5,000 units 08/29/20 21:00 09/02/20 10:02 Heparin 5,000 Units/Ml Vial SC 5,000 units BID SANTOS Administration Insulin Human Lispro 0 units 08/29/20 22:14 09/02/20 11:05 Humalog 300 Units/3 Ml Vial SC 4 unit .MODERATE SLIDING SC PRN Administration Moderate Correctional Scale Insulin Human NPH 10 unit 09/01/20 21:00 09/02/20 09:36 Nph, Human Insulin Isophane 300 Unit/3 Ml Vial SC 10 unit BID SANTOS Administration Insulin Human Regular 0 units 08/29/20 22:14 09/01/20 21:13 Insulin Regular 300 Units/3 Ml Vial SC 4 unit .BEDTIME SLIDING SC PRN Administration Bedtime Correctional Scale Ondansetron HCl 4 mg 08/29/20 18:04 09/01/20 21:33 Ondansetron Pf 4 Mg/2 Ml Vial IVP 4 mg Q6H PRN Administration Nausea/Vomiting Senna/Docusate Sodium 2 tab 08/29/20 18:04 09/01/20 17:01 Senokot S 8.6-50 Mg Tab PO 2 tab BID PRN Administration Constipation Sodium Chloride 10 ml 08/29/20 21:00 09/02/20 10:08 Flush - Normal Saline 10 Ml Syringe IVF 10 ml Q12HR SANTOS Administration - Exam General Appearance: NAD, awake alert Eye: PERRL ENT: normocephalic atraumatic Neck: supple Heart: RRR Respiratory: CTAB, normal chest expansion Gastrointestinal: soft, normal bowel sounds Skin: normal turgor Neurological: cranial nerve grossly intact, no new deficit Musculoskeletal: normal tone Psychiatric: normal affect, normal behavior, A&O x 3 Hosp A/P - Plan 44-year-old female with a past medical history of multiple myeloma, diabetes, hypertension came w.. hypercalcemia and acute renal failure that was discovered on labs drawn this morning at [facility] #Acute renal failure likely secondary to multiple myeloma Cast nephropathy #Hypercalcemia likely secondary to multiple myeloma -Patient presented with a creatinine of 6.5 and a calcium of 14. Her last creatinine prior to that was normal on 06/18 Plan: -We will give 2 L bolus and start on normal saline 100 mL. Check bilateral renal ultrasound. Nephrology was consulted. -She has received zoledronic acid this morning. We will start dexamethasone [address] Perez for hypercalcemia and will also give calcitonin one injection 200 mg per neurology. Repeat calcium level in the morning -Renal ultrasound no abnormalities noted. - little improvement in creatinine level today. -Trial of dexamethasone 40 mg daily for 5 days.--Last dose next Tuesday. -Dr. Perez started her on Velcade Radiation oncology consult placed for possible palliative radiation treatment to left femur osteolytic lesions #Multiple myeloma -Status post Zometa and on Velcade . Per Dr. Perez, we will hold off on Revlimid due to her acute renal failure. #Hyponatremia -. Will hydrate with IV fluids and repeat BMP -Sodium did not improve. It remains the same. However I noticed that IV fluid has been discontinued. Will follow along with the renal. #Anemia -likely secondary to multiple myeloma -Hemoglobin 8.6, will continue to trend. 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 Vitamin D deficiency -Started her on p.o. supplement #Left hip pain Left femur lytic lesions related to multiple myeloma X-ray of the right hip and right knee showing mild degenerative arthrosis. She also has a numerous osteolytic lesions in the right hemipelvis right femur and the proximal right foreleg -Left hip x-ray shows extensive myelomatous lesions. Will order PT and make her nonweightbearing to her left leg Mild osteoarthritis changes --Radiation oncology is following with us. ---Recommends palliative radiation to bilateral distal femurs -But that has to be done after the surgical intervention. Dr. Mccrary is planning to do intramedullary nail fixation fixatation. --Plan for possible intramedullary nail fixation for the impending fracture on the left distal femur given the extensive lytic lesions. -Medical point of view, will make sure electrolytes and blood glucose are in the normal range and also will get the echo.
--- NOTE | 2020-09-02 16:28 | PDOC.MOPN ---
Interval History: feels ok, pain controlled. Stepdaughter at bedside. Has not made decision regarding leg surgery - Vital Signs Vital Signs: Vital Signs (12 hours) Temp Pulse Pulse Pulse Resp BP BP 09/02/20 15:24 98.1 F 72 16 09/02/20 11:04 98.0 F 73 18 09/02/20 08:50 72 69 149/70 H 161/73 H 09/02/20 07:43 98.3 F 74 17 09/02/20 04:47 98.1 F 70 12 BP Pulse Ox Pulse Ox 09/02/20 15:24 159/73 H 96 09/02/20 11:04 145/70 H 97 09/02/20 08:50 97 09/02/20 07:43 150/68 H 97 09/02/20 04:47 148/69 H 12 L Weight Admit Weight 128 lb 4.8 oz Weight 142 lb 12.8 oz - Physical Exam General: Alert, Oriented x3, No acute distress HEENT: Atraumatic Lungs: Clear to auscultation Cardiovascular: Regular rate Abdomen: Normal bowel sounds Neurological: Normal speech - Labs Result Diagrams: 09/02/20 04:12 09/02/20 04:12 Lab results: Laboratory Results - last 24 hr 09/02/20 10:31: POC Glucose 213 H 09/02/20 05:40: POC Glucose 236 H 09/02/20 04:12: WBC 3.9 L, RBC 2.23 L, Hgb 7.4 L, Hct 21.3 L, MCV 95.2, MCH 33.2 H, MCHC 34.9, RDW 11.6, Plt Count 183, MPV 7.7, Neutrophils % 92.8 H, Lymphocytes % 4.8 L, Monocytes % 1.8, Eosinophils % 0.1, Basophils % 0.5, Neutrophils # 3.6, Lymphocytes # 0.2 L, Monocytes # 0.1 L, Eosinophils # 0.0, Basophils # 0.0 09/02/20 04:12: Sodium 129 L, Potassium 5.0, Chloride 100, Carbon Dioxide 17 L, Anion Gap 17, BUN 101 H, Creatinine 5.86 H, Estimated GFR (MDRD) 8, Glucose 272 H, Calcium 7.3 L 09/01/20 20:28: POC Glucose 344 H 09/01/20 17:05: POC Glucose 299 H Status: lab reviewed by me A/P - Problem (1) Acute kidney failure Current Visit: Yes Status: Acute (2) Anemia Current Visit: Yes Code(s): D64.9 - ANEMIA, UNSPECIFIED Status: Acute (3) Myeloma Current Visit: Yes Code(s): C90.00 - MULTIPLE MYELOMA NOT HAVING ACHIEVED REMISSION Status: Acute - Plan Plan: 1. Day 4 Velcade given, no side effects. Next dose on Day 8 (Tuesday). 2. encouraged to have leg stabilization 3. continue supportive care
[2020-09-02] MEDS: Insulin Regular 300 UNITS/3 ML VIAL SC PRN (20:47)
[2020-09-03 04:42] LABS: #Lymphocytes 0.2 thou/uL (1.20-3.40); #Monocytes 0.1 thou/uL (0.11-0.59); #Neutrophils 4.4 thou/uL (1.40-6.50); %Eosinophils 0.1 % (0.0-10.0); %Lymphocytes 4.6 % (21.0-51.0); %Monocytes 1.7 % (0.0-10.0); %Neutrophils 93.6 % (42.0-75.0); Hemoglobin 7.5 g/dL (12.0-16.0); Mean Corpuscular HGB CONC 34.8 g/dL (32.0-36.0); Mean Corpuscular Volume 94.7 fL (78.0-98.0); Mean Platelet Volume 7.8 fL (7.4-10.4); Platelet Count 146 thou/uL (130-400); RBC Distribution Width 11.7 % (11.5-14.5); Red Blood Cell (RBC) Count 2.28 mill/uL (4.20-5.40); White Blood Cell (WBC) Count 4.7 thou/uL (4.8-10.8)
[2020-09-03 05:04] LABS: Anion Gap 19 mmol/L (10-20); BUN (Urea Nitrogen) 105 mg/dL (7.0-18.7); Calc. Creatinine Clearance 12 mL/min (70-130); Calcium 6.9 mg/dL (7.8-10.44); Carbon Dioxide 15 mmol/L (22-29); Chloride 101 mmol/L (98-107); Glucose 221 mg/dL (70-105); Potassium 5.2 mmol/L (3.5-5.1); Sodium 130 mmol/L (136-145)
[2020-09-03 06:13] LABS: A/G Ratio 1.1 (0.7-1.7); Alpha 1 0.3 g/dL (0.0-0.4); Alpha 2 0.9 g/dL (0.4-1.0); Beta 1.1 g/dL (0.7-1.3); Gamma 0.6 g/dL (0.4-1.8); Globulin, Total 2.8 g/dL (2.2-3.9); M-Spike 0.5 g/dL (Not Observed)
[2020-09-03] MEDS: HumaLOG 300 UNITS/3 ML VIAL SC PRN (06:26)
--- NOTE | 2020-09-03 08:43 | PDOC.MOPN ---
Interval History: Pt had trouble sleeping last night. Pain is controlled with current regimen. Having constipation. - Vital Signs Vital Signs: Vital Signs (12 hours) Temp Pulse Resp BP Pulse Ox 09/03/20 07:45 98.0 F 72 18 138/63 96 09/03/20 03:47 98.1 F 67 16 155/71 H 95 09/03/20 00:00 98.4 F 74 18 141/74 H 98 Weight Admit Weight 128 lb 4.8 oz Weight 140 lb 12.8 oz - Physical Exam General: Alert, Oriented x3, Cooperative HEENT: EOMI Lungs: Normal air movement Cardiovascular: Regular rate Neurological: Cranial nerves 3-12 NL Psych/Mental Status: Mental status NL - Labs Result Diagrams: 09/03/20 04:12 09/03/20 04:12 Lab results: Laboratory Results - last 24 hr 09/03/20 06:14: POC Glucose 190 H 09/03/20 04:12: WBC 4.7 L, RBC 2.28 L, Hgb 7.5 L, Hct 21.6 L, MCV 94.7, MCH 33.0 H, MCHC 34.8, RDW 11.7, Plt Count 146, MPV 7.8, Neutrophils % 93.6 H, Lymphocytes % 4.6 L, Monocytes % 1.7, Eosinophils % 0.1, Basophils % 0.0, Neutrophils # 4.4, Lymphocytes # 0.2 L, Monocytes # 0.1 L, Eosinophils # 0.0, Basophils # 0.0 09/03/20 04:12: Sodium 130 L, Potassium 5.2 H, Chloride 101, Carbon Dioxide 15 L, Anion Gap 19, BUN 105 H, Creatinine 5.86 H, Estimated GFR (MDRD) 8, Glucose 221 H, Calcium 6.9 L 09/02/20 20:35: POC Glucose 311 H 09/02/20 16:37: POC Glucose 211 H 09/02/20 10:31: POC Glucose 213 H 08/29/20 20:58: Globulin 2.8, Albumin/Globulin Ratio 1.1, Njysx-9-Unzaqbrid 0.3, Rfjiy-6-Bpsbhqgmp 0.9, Beta Globulins 1.1, Gamma Globulins 0.6, M-Samuel 0.5 H, PEP Note , PEP Interpretation , Total Protein (LETHA) 5.8 L, Albumin (LETHA) 3.0 A/P - Problem (1) Myeloma Current Visit: Yes Code(s): C90.00 - MULTIPLE MYELOMA NOT HAVING ACHIEVED REMISSION Status: Acute (2) Hypercalcemia Current Visit: Yes Code(s): E83.52 - HYPERCALCEMIA Status: Acute (3) Acute kidney failure Current Visit: Yes Status: Acute (4) Anemia Current Visit: Yes Code(s): D64.9 - ANEMIA, UNSPECIFIED Status: Acute - Plan Plan: Cont IVF, monitor kidney function, electrolytes Dr. Mccrary to perform nail fixation to left femur, plan XRT to B/L femur afterward Velcade Tuesday Cytoxan Tuesday Dexamethasone 40 mg PO day of and after Velcade
--- NOTE | 2020-09-03 10:07 | PRG ---
DATE OF SERVICE: 09/03/2020 SUBJECTIVE: Ms. Peter is being seen with her family member at the bedside for translation. The patient has been thinking about undergoing her intramedullary nail procedure. She wants to proceed with this at this point. I have discussed with her lytic lesions of the femurs bilaterally. Her left femur is more symptomatic than the right. She really probably needs intramedullary nail fixation of both femurs to prevent fracture and allow her to proceed with radiation. This is complicated somewhat by the fact that the patient is a [employer] and she has a low hemoglobin level with chronic anemia at baseline. Her pain has continued in the femurs. OBJECTIVE: VITAL SIGNS: Temperature is 98.0, pulse is 72, respiratory rate is 18, oxygen saturation 96%, blood pressure 138/63. GENERAL: She is lying supine. She is alert, talkative, in no apparent distress. LUNGS: Breathing comfortably. ABDOMEN: Soft, nontender, nondistended. CARDIOVASCULAR: Pulses palpable and regular peripherally. MUSCULOSKELETAL: The patient's bilateral lower extremities have pain with motion at the knees and thighs. She has minimal swelling. Skin is intact. Neurovascularly intact distally. LABORATORY STUDIES: The patient is negative for COVID. Potassium is 5.2, sodium is 130. Hemoglobin is 7.5, hematocrit is 21.6. IMPRESSION: Bilateral femur lytic lesions with impending fracture in a patient with advanced multiple myeloma. PLAN: I had a long discussion with the patient and her family. She wants to proceed with surgery after thinking about this for the last 2 days. She feels that she is ready. I have recommended left femur intramedullary nail to prevent fracture. The goal is to also provide pain relief. She needs a right intramedullary nail as well, but I think given her chronic anemia and the fact that she is a Jehov[employer] Witness, we will likely run into too much bleeding if we try bilateral femoral nails. We will do one today. We could do the right side in approximately 2 weeks if she wants to proceed with that. She will be n.p.o. She will be added to the surgical schedule. I have reviewed risk with her, which to include infection, wound complication, DVT, PE, fracture of femur, medical complications related to anesthesia, and others. Dr. Wright will be her surgeon. Job ID: [id number]
[2020-09-03] MEDS: Heparin 5,000 UNITS/ML VIAL SC SCH ×2 (10:33→21:06)
[2020-09-03] MEDS: NPH, Human Insulin Isophane 300 UNIT/3 ML VIAL SC SCH ×2 (10:34→21:06)
[2020-09-03] MEDS ORDERED: Lidocaine 1% PF 5 ML VIAL ONE (10:57)
[2020-09-03] MEDS ORDERED: PHENYLEPHRINE-NS 100 MCG/ML 10 ML SYRINGE ONE (10:57)
[2020-09-03] MEDS ORDERED: PROPOFOL 200 MG/20 ML VIAL ONE (10:57)
[2020-09-03] MEDS ORDERED: ePHEDrine 50 MG/ML VIAL ONE (10:57)
[2020-09-03] MEDS ORDERED: Dexamethasone 20 MG/5 ML VIAL ONE (10:57)
[2020-09-03] MEDS ORDERED: Ondansetron PF 4 MG/2 ML Vial ONE (10:57)
--- NOTE | 2020-09-03 13:38 | PDOC.HOSPP ---
- Subjective Encounter Date: 09/03/20 Encounter Time: 10:40 Subjective: Patient is going for surgery today. Daughter at bedside. Chemo drugs initiation as well as possible radiation treatment. Care plan discussed with both of them. Stable to be transferred to oncology floor if she is stable p ostop. - Objective Vital Signs & Weight: Vital Signs (12 hours) Temp Pulse Resp BP Pulse Ox 09/03/20 11:11 98.6 F 75 18 148/68 H 97 09/03/20 07:45 98.0 F 72 18 138/63 96 09/03/20 03:47 98.1 F 67 16 155/71 H 95 Weight Admit Weight 128 lb 4.8 oz Weight 140 lb 12.8 oz I&O: 09/02/20 09/03/20 09/04/20 06:59 06:59 06:59 Intake Total 960 720 Output Total 1750 1050 Balance -790 -330 Result Diagrams: 09/03/20 04:12 09/03/20 04:12 Additional Labs: Accuchecks 09/03/20 09/03/20 09/02/20 11:20 06:14 20:35 POC Glucose 128 H 190 H 311 H 09/02/20 16:37 POC Glucose 211 H Hospitalist ROS - Medication Medications: Active Medications Generic Name Dose Route Start Last Admin Trade Name Freq PRN Reason Stop Dose Admin Hydrocodone Bitart/Acetaminophen 1 tab 08/29/20 18:04 09/01/20 21:32 Hydrocodone/Acetaminophen 5/325 Mg Tablet PO 1 tab Q4H PRN Administration Moderate to Severe Pain (6-10) Bisacodyl 10 mg 08/29/20 18:04 09/02/20 20:50 Bisacodyl 5 Mg Tab PO 10 mg DAILYPRN PRN Administration Constipation Heparin Sodium (Porcine) 5,000 units 08/29/20 21:00 09/03/20 10:33 Heparin 5,000 Units/Ml Vial SC Not Given BID SANTOS Insulin Human Lispro 0 units 08/29/20 22:14 09/03/20 06:26 Humalog 300 Units/3 Ml Vial SC 2 unit .MODERATE SLIDING SC PRN Administration Moderate Correctional Scale Insulin Human NPH 12 unit 09/02/20 21:00 09/03/20 10:34 Nph, Human Insulin Isophane 300 Unit/3 Ml Vial SC Not Given BID SANTOS Insulin Human Regular 0 units 08/29/20 22:14 09/02/20 20:47 Insulin Regular 300 Units/3 Ml Vial SC 4 unit .BEDTIME SLIDING SC PRN Administration Bedtime Correctional Scale Ondansetron HCl 4 mg 08/29/20 18:04 09/01/20 21:33 Ondansetron Pf 4 Mg/2 Ml Vial IVP 4 mg Q6H PRN Administration Nausea/Vomiting Senna/Docusate Sodium 2 tab 08/29/20 18:04 09/01/20 17:01 Senokot S 8.6-50 Mg Tab PO 2 tab BID PRN Administration Constipation Sodium Chloride 10 ml 08/29/20 21:00 09/03/20 10:23 Flush - Normal Saline 10 Ml Syringe IVF 10 ml Q12HR SANTOS Administration - Exam General Appearance: NAD, awake alert Eye: PERRL ENT: normocephalic atraumatic Neck: supple Heart: RRR Respiratory: CTAB, normal chest expansion Gastrointestinal: soft, normal bowel sounds Neurological: no focal deficits Psychiatric: A&O x 3 Hosp A/P - Plan 44-year-old female with a past medical history of multiple myeloma, diabetes, hypertension came w.. hypercalcemia and acute renal failure that was discovered on labs drawn this morning at [facility] #Acute renal failure likely secondary to multiple myeloma Cast nephropathy #Hypercalcemia likely secondary to multiple myeloma -Patient presented with a creatinine of 6.5 and a calcium of 14. Her last creatinine prior to that was normal on 06/18 Plan: -We will give 2 L bolus and start on normal saline 100 mL. Check bilateral renal ultrasound. Nephrology was consulted. -She has received zoledronic acid this morning. We will start dexamethasone [address] Perez for hypercalcemia and will also give calcitonin one injection 200 mg per neurology. Repeat calcium level in the morning -Renal ultrasound no abnormalities noted. - little improvement in creatinine level today. -Trial of dexamethasone 40 mg daily for 5 days.--Last dose next Tuesday. -Dr. Perez started her on Velcade Radiation oncology consult placed for possible palliative radiation treatment to left femur osteolytic lesions #Multiple myeloma -Status post Zometa and on Velcade . Per Dr. Perez, we will hold off on Revlimid due to her acute renal failure. #Hyponatremia -. Will hydrate with IV fluids and repeat BMP -Sodium did not improve. It remains the same. However I noticed that IV fluid has been discontinued. Will follow along with the renal. #Anemia -likely secondary to multiple myeloma -Hemoglobin 8.6, will continue to trend. 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 Vitamin D deficiency -Started her on p.o. supplement #Left hip pain Left femur lytic lesions related to multiple myeloma X-ray of the right hip and right knee showing mild degenerative arthrosis. She also has a numerous osteolytic lesions in the right hemipelvis right femur and the proximal right foreleg -Left hip x-ray shows extensive myelomatous lesions. Will order PT and make her nonweightbearing to her left leg Mild osteoarthritis changes --Radiation oncology is following with us. ---Recommends palliative radiation to bilateral distal femurs -But that has to be done after the surgical intervention. Dr. Mccrary is planning to do intramedullary nail fixation fixatation. --Plan for possible intramedullary nail fixation for the impending fracture on the left distal femur given the extensive lytic lesions. -Medical point of view, will make sure electrolytes and blood glucose are in the normal range and also will get the echo. Possible nail fixation to left femur, today Bilateral palliative radiation treatment for femur lytic lesions She will be started on Velcade on Tuesday and Cytoxan on Tuesday meanwhile continue dexamethasone 40 mg daily.
[2020-09-03] MEDS ORDERED: CEFAZOLIN 2 GM in Premix Bag 1 BAG IVPB SCH ×2 (15:00→18:30)
--- NOTE | 2020-09-03 15:00 | ULT ---
EXAM: Vein mapping for dialysis access HISTORY: End-stage renal disease. TECHNIQUE: Multiplanar grayscale and color Doppler images were obtained in a bilateral upper extremit y venous ultrasound. Spectral analysis of the Doppler waveforms of the vessels were performed. FINDINGS: The bilateral internal jugular veins and subclavian veins are patent without evidence of th rombus. Right brachial artery 4.0 mm Right radial artery 2.5 mm Right ulnar artery 3.1 mm Left brachial artery 4.2 mm Left radial artery 2.3 mm Left ulnar artery 2.5 mm RIGHT CEPHALIC VEIN in millimeters 2.5 -- Shoulder 3.0 -- Upper arm 3.3 -- Mid upper arm 4.1-- Just proximal to the elbow 3.1 -- Just distal to the elbow 3.0 -- Forearm 2.8 -- Wrist RIGHT BASILIC VEIN in millimeters 4.2 -- Shoulder 4.2 -- Upper arm 3.6 -- Mid upper arm 4.2 -- Just proximal to the elbow 2.5 -- Just distal to the elbow 1.4 -- Forearm 1.7 -- Wrist LEFT CEPHALIC VEIN in millimeters 0.8 -- Shoulder 0.8 -- Upper arm 0.8 -- Mid upper arm 1.6 -- Just proximal to the elbow 1.3 -- Just distal to the elbow 1.5 -- Forearm 2.7 -- Wrist LEFT BASILIC VEIN in millimeters 4.6 -- Shoulder 4.0 -- Upper arm 3.8 -- Mid upper arm 3.7 -- Just proximal to the elbow 2.1 -- Just distal to the elbow 1.7 -- Forearm 1.2 -- Wrist IMPRESSION: Vein mapping for dialysis access as above
[2020-09-03] MEDS ORDERED: Fentanyl 100 MCG/2 ML VIAL ONE ×4 (16:18→19:19)
[2020-09-03] MEDS ORDERED: Lidocaine 2% Jelly 5 ML TUBE ONE (16:18)
[2020-09-03] MEDS ORDERED: Heparin 10,000 UNITS/ 10 ML VIAL ONE (16:33)
[2020-09-03] MEDS ORDERED: Bupivacaine PF 0.5% 30 ML VIAL ONE (16:33)
[2020-09-03] MEDS ORDERED: Lidocaine 1% w/Epinephrine 1:100K 20 ML VIAL ONE (16:33)
[2020-09-03] MEDS ORDERED: Sodium Chloride 0.9% 30 ML ONE (16:33)
[2020-09-03] MEDS: Sodium Bicarbonate Tab 325 MG TAB PO SCH ×2 (17:19→21:06)
[2020-09-03] MEDS ORDERED: Promethazine HCl 25 MG/ML VIAL SLOW IVP PRN (18:21)
[2020-09-03] MEDS ORDERED: HYDROmorphone 2 MG/ML VIAL SLOW IVP PRN (18:21)
[2020-09-03] MEDS ORDERED: Promethazine HCl 25 MG/ML VIAL IM PRN (18:21)
[2020-09-03] MEDS ORDERED: Acetaminophen 500 MG TAB PO PRN (18:21)
[2020-09-03] MEDS ORDERED: Ondansetron HCl/PF 4 MG/2 ML Vial IVP PRN (18:21)
--- NOTE | 2020-09-03 18:54 | CON ---
DATE OF CONSULTATION: SUBJECTIVE: A 44-year-old female with hypertension, diabetes, elevated cholesterol, is a non-citizen, but is a resident here, not yet establishing citizenship. She presents to the hospital, admitted to the hospitalist service on 08/29, who has a history of chronic renal failure, hypercalcemia, diagnosed with multiple myeloma. She has been seen by oncologist, Dr. Perez. He noted in May 2020, she was found to have multiple lytic lesions, diagnosed with lambda light chain myeloma. She was to start Velcade, Revlimid, and dexamethasone, however, did not have insurance and that presented a barrier to her initiating care. Patient's labs reflected chronic anemia and renal failure with hypercalcemia and she was sent to the emergency room. I was asked by Dr. Hogan to place hemodialysis catheter. She is found radiologically to have impending fractures. Dr. Wright has seen her and planning staged ORIF hips. ALLERGIES: NONE. SOCIAL HISTORY: Tobacco, none. Alcohol, none. MEDICATIONS AT HOME: 1. Insulin. 2. Atorvastatin. 3. Gabapentin. 4. Reglan. 5. Isosorbide mononitrate. PAST SURGICAL HISTORY: Noncontributory. PAST MEDICAL HISTORY: Multiple myeloma, anemia, end-stage renal disease, hypertension, diabetes, elevated cholesterol. FAMILY HISTORY: Noncontributory. REVIEW OF SYSTEMS: Noncontributory. PHYSICAL EXAMINATION: VITAL SIGNS: Height 5 feet 2 inches, weight 140 pounds. 25 BMI. HEAD, EARS, EYES, NOSE, AND THROAT: Unremarkable. LUNGS: Clear to auscultation. CARDIAC: Regular rate and rhythm without murmur or gallop. ABDOMEN: Soft, nontender. EXTREMITIES: Unremarkable. No ankle edema. Multiple bruises in antecubital area indicative of multiple blood draws, IV in right hand. ULTRASOUND: Ultrasound vein mapping performed today at my request reveals good cephalic vein on the right, extending down to the wrist, superior to the left and basilic vein good on both sides. ASSESSMENT AND PLAN: 1. End-stage renal disease, in need to initiate dialysis. We will plan cuffed tunneled hemodialysis catheter, right IJ central line, left IJ to preserve veins. We will plan right arm primary AV fistula in the next 1 or 2 days pending OR availability. Risks and benefits explained. She consents. 2. Impending hip fractures per Dr. Wright, ORIF staged. 3. Temple, staged ORIF hips. 4. Diabetes. 5. Hypertension. 6. Elevated cholesterol. Job ID: [id number]
--- NOTE | 2020-09-03 19:31 | RAD ---
FIVE FLUOROSCOPIC SPOT IMAGES OF THE LEFT FEMUR: 09/03/20 INDICATIONS: History of ORIF of left hip. COMPARISON: Prior left femur and left hip radiographs dated 08/29/20. FINDINGS: Since the comparison examination there has been interval placement of a cephalomedullary device in th e left femur and hip. There are numerous osteolytic lesions involving the left femur consistent with patient's diagnosis of multiple myeloma. Total fluoroscopic time is 52.1 seconds. Dose is 4.91 mGy. IMPRESSION: 1. Interval placement of cephalomedullary device in the left femur. 2. Multiple osteolytic lesions consistent with multiple myeloma. POS: BH
--- NOTE | 2020-09-03 19:43 | RAD ---
Portable frontal chest radiograph: 09/03/2020 COMPARISON: None HISTORY: Central line placement FINDINGS: Osteolytic lesions are suspected within the proximal right humerus. There is an age-indeter minate distal left clavicle fracture. There is a left-sided vascular catheter present, the distal tip located further distal than normally seen, overlying the midline lower cardiac silhouette, probably in the region of the right ventricle or junction of the right atrium and right ventricle. There is a right-sided dialysis catheter with distal tip overlying the cavoatrial junction. No pneumothorax is seen. IMPRESSION: Osseous lytic lesions as detailed above. Low-lying left-sided vascular catheter. Retracti on recommended. Results called to Dr. Burns 09/03/2020
[2020-09-03] MEDS: HYDROcodone/Acetaminophen 5/325 mg Tablet PO PRN (21:06)
[2020-09-03] MEDS ORDERED: Morphine 2 MG/ML VIAL SLOW IVP PRN (21:09)
[2020-09-03] MEDS ORDERED: CEFAZOLIN 1 GM in Sodium Chloride 0.9% 100 ML IVPB SCH (22:00)
[2020-09-03 22:07] LABS: Anion Gap 21 mmol/L (10-20); BUN (Urea Nitrogen) 104 mg/dL (7.0-18.7); Calc. Creatinine Clearance 12 mL/min (70-130); Calcium 6.8 mg/dL (7.8-10.44); Carbon Dioxide 16 mmol/L (22-29); Chloride 105 mmol/L (98-107); Glucose 207 mg/dL (70-105); Sodium 137 mmol/L (136-145)
[2020-09-04] MEDS: ceFAZolin 1 GM/D5W 1 GM in Premix Bag 1 BAG IVPB SCH ×3 (01:01→16:57)
[2020-09-04] MEDS: HYDROcodone/Acetaminophen 5/325 mg Tablet PO PRN ×2 (04:10→15:04)
[2020-09-04 06:28] LABS: Anion Gap 18 mmol/L (10-20); BUN (Urea Nitrogen) 100 mg/dL (7.0-18.7); Calc. Creatinine Clearance 12 mL/min (70-130); Calcium 6.7 mg/dL (7.8-10.44); Carbon Dioxide 18 mmol/L (22-29); Chloride 106 mmol/L (98-107); Glucose 175 mg/dL (70-105); Potassium 5.3 mmol/L (3.5-5.1); Sodium 137 mmol/L (136-145)
[2020-09-04 06:53] LABS: #Lymphocytes 0.2 thou/uL (1.20-3.40); #Neutrophils 3.1 thou/uL (1.40-6.50); %Eosinophils 0.3 % (0.0-10.0); %Monocytes 0.6 % (0.0-10.0); %Neutrophils 94.1 % (42.0-75.0); Hemoglobin 6.5 g/dL (12.0-16.0); Mean Corpuscular HGB CONC 34.5 g/dL (32.0-36.0); Mean Corpuscular Hemoglobin 32.9 pg (27.0-31.0); Mean Corpuscular Volume 95.3 fL (78.0-98.0); Mean Platelet Volume 7.7 fL (7.4-10.4); Platelet Count 90 thou/uL (130-400); Platelet Morphology Comment Appears Decreased; RBC Distribution Width 11.7 % (11.5-14.5); Red Blood Cell (RBC) Count 1.97 mill/uL (4.20-5.40); White Blood Cell (WBC) Count 3.3 thou/uL (4.8-10.8)
[2020-09-04] MEDS ORDERED: EPOETIN ALFA-EPBX (ESRD) 10,000 UNIT/ML VIAL IVP SCH (08:00)
[2020-09-04] MEDS ORDERED: Heparin 10,000 UNITS/ 10 ML VIAL ONE (09:05)
[2020-09-04] MEDS: NPH, Human Insulin Isophane 300 UNIT/3 ML VIAL SC SCH ×2 (10:30→20:37)
[2020-09-04] MEDS: Sodium Bicarbonate Tab 325 MG TAB PO SCH ×3 (10:30→20:37)
[2020-09-04] MEDS: Heparin 5,000 UNITS/ML VIAL SC SCH ×2 (10:30→20:01)
--- NOTE | 2020-09-04 12:07 | PRG ---
DATE OF SERVICE: 09/04/2020 SUBJECTIVE: A 44-year-old female being seen for end-stage renal disease. The patient denies any nausea, vomiting, or chest pain. OBJECTIVE: GENERAL: On examination, the patient is awake and alert. VITAL SIGNS: Afebrile, pulse 84, breathing at 16, and blood pressure 137/66. HEENT: Head normocephalic and atraumatic. Eyes intact, no ulcers. Nose intact, no ulcers. Ears intact, no ulcers. NECK: Supple. No JVD. CHEST: Symmetrical and clear. CARDIOVASCULAR: Shows S1 and S2, no rub, no murmur. GASTROINTESTINAL: Abdomen is soft, bowel sounds positive. EXTREMITIES: Show no edema or ulcers. SKIN: Shows no rash or petechiae. MUSCULOSKELETAL: Shows no joint swelling or stiffness. GENITOURINARY: Shows no [place] or CVA tenderness. NEUROLOGIC: Motor intact. Cranial nerves intact. LABORATORY DATA: Show hemoglobin is 6.5. Potassium is 5.3. ASSESSMENT AND PLAN: 1. Stage 6 chronic kidney disease. Plan dialysis. 2. Acidosis. Plan dialysis. 3. Anemia. The patient is a Tenriism. I would recommend transfusion. Otherwise, dialysis will be very, very dangerous and tricky. The risks versus benefits will be discussed. 4. Hypocalcemia. Start calcium supplementation. Overall, prognosis remains poor. Consider Palliative Care hospice. Job ID: [id number]
--- NOTE | 2020-09-04 12:27 | PDOC.MOPN ---
Interval History: Pt feeling ok. Sleeping better today. Denies pain currently. Had a BM yesterday. She is s/p LIJ cath placement for HD. - Vital Signs Vital Signs: Vital Signs (12 hours) Temp Pulse Resp BP Pulse Ox 09/04/20 08:00 97.4 F L 84 16 137/66 97 09/04/20 04:00 98.1 F 81 16 140/62 98 Weight Admit Weight 128 lb 4.8 oz Weight 140 lb 12.8 oz - Physical Exam General: Alert, Oriented x3, Cooperative HEENT: EOMI Lungs: Normal air movement Cardiovascular: Regular rate Neurological: Cranial nerves 3-12 NL Psych/Mental Status: Mental status NL - Labs Result Diagrams: 09/04/20 06:00 09/04/20 06:00 Lab results: Laboratory Results - last 24 hr 09/04/20 06:00: Sodium 137, Potassium 5.3 H, Chloride 106, Carbon Dioxide 18 L, Anion Gap 18, BUN 100 H, Creatinine 5.86 H, Estimated GFR (MDRD) 8, Glucose 175 H, Calcium 6.7 L 09/04/20 06:00: WBC 3.3 L, RBC 1.97 L, Hgb 6.5 L, Hct 18.8 L, MCV 95.3, MCH 32.9 H, MCHC 34.5, RDW 11.7, Plt Count 90 L, MPV 7.7, Neutrophils % 94.1 H, Neutrophils % (Manual) Not Reportable, Lymphocytes % 5.0 L, Monocytes % 0.6, Eosinophils % 0.3, Basophils % 0.0, Neutrophils # 3.1, Lymphocytes # 0.2 L, Monocytes # 0.0 L, Eosinophils # 0.0, Basophils # 0.0, Plt Morphology Comment Appears Decreased L 09/04/20 05:58: POC Glucose 163 H 09/03/20 21:22: Sodium 137, Potassium 5.0, Chloride 105, Carbon Dioxide 16 L, Anion Gap 21 H, BUN 104 H, Creatinine 6.04 H, Estimated GFR (MDRD) 7, Glucose 207 H, Calcium 6.8 L 09/03/20 20:31: POC Glucose 182 H 09/03/20 15:36: POC Glucose 111 H A/P - Problem (1) Myeloma Current Visit: Yes Code(s): C90.00 - MULTIPLE MYELOMA NOT HAVING ACHIEVED REMISSION Status: Acute (2) Hypercalcemia Current Visit: Yes Code(s): E83.52 - HYPERCALCEMIA Status: Acute (3) Acute kidney failure Current Visit: Yes Status: Acute (4) Anemia Current Visit: Yes Code(s): D64.9 - ANEMIA, UNSPECIFIED Status: Acute - Plan Plan: s/p nail fixation to left femur, may consider right femur in 2 weeks - f/u Dr. Mccrary plan XRT to B/L femur as per Dr. Valdez Velcade Tuesday Cytoxan Tuesday Dexamethasone 40 mg PO day of and after Velcade Start HD as per nephro
--- NOTE | 2020-09-04 13:06 | PRG ---
DATE OF SERVICE: 09/03/2020 SUBJECTIVE: A 44-year-old female, being seen for end-stage renal disease. The patient denies any nausea, vomiting, or chest pain. PHYSICAL EXAMINATION: GENERAL: The patient is awake and alert. VITAL SIGNS: Afebrile, pulse 72, breathing at 16, blood pressure 132/60. HEENT: Head normocephalic and atraumatic. Eyes intact, no ulcers. Nose intact, no ulcers. Ears intact, no ulcers. NECK: Supple. No JVD. CHEST: Symmetrical and clear. CARDIOVASCULAR: Shows S1 and S2, no rub, no murmur. GASTROINTESTINAL: Abdomen is soft, bowel sounds positive. EXTREMITIES: Show no edema or ulcers. SKIN: Shows no rash or petechiae. MUSCULOSKELETAL: Shows no joint swelling or stiffness. GENITOURINARY: Shows no [place] or CVA tenderness. NEUROLOGIC: Motor intact. Cranial nerves intact. LABORATORY DATA: Showed hemoglobin 7.5, potassium 5.2. ASSESSMENT AND PLAN: 1. Chronic kidney disease stage 6. Plan dialysis. 2. Hypertension, stable. 3. Anemia, stable. 4. Metabolic acidosis. Start sodium bicarbonate. Job ID: [id number]
[2020-09-04 13:35] VITALS: BMI 25.7
[2020-09-04] MEDS: Ondansetron PF 4 MG/2 ML Vial IVP PRN (14:59)
--- NOTE | 2020-09-04 15:26 | PDOC.HOSPP ---
- Subjective Encounter Date: 09/04/20 Encounter Time: 15:10 Subjective: Patient returned from the OR after nail fixation to her left femur. Conversed with her through [employer] translation. She has a left IJ tunnel catheter for dialysis. Discussed with Dr. Barbosa on future dialysis plan. Dr. Lazaro on board for AV fistula placement - Objective Vital Signs & Weight: Vital Signs (12 hours) Temp Pulse Resp BP Pulse Ox 09/04/20 13:09 98.8 F 89 12 145/67 H 95 09/04/20 08:00 97.4 F L 84 16 137/66 97 09/04/20 04:00 98.1 F 81 16 140/62 98 Weight Admit Weight 128 lb 4.8 oz Weight 140 lb 12.8 oz I&O: 09/03/20 09/04/20 09/05/20 06:59 06:59 06:59 Intake Total 720 240 Output Total 1050 1470 Balance -330 -1230 Result Diagrams: 09/04/20 06:00 09/04/20 06:00 Additional Labs: Accuchecks 09/04/20 09/03/20 09/03/20 05:58 20:31 15:36 POC Glucose 163 H 182 H 111 H Hospitalist ROS - Medication Medications: Active Medications Generic Name Dose Route Start Last Admin Trade Name Freq PRN Reason Stop Dose Admin Hydrocodone Bitart/Acetaminophen 1 tab 08/29/20 18:04 09/04/20 15:04 Hydrocodone/Acetaminophen 5/325 Mg Tablet PO 1 tab Q4H PRN Administration Moderate to Severe Pain (6-10) Bisacodyl 10 mg 08/29/20 18:04 09/02/20 20:50 Bisacodyl 5 Mg Tab PO 10 mg DAILYPRN PRN Administration Constipation Heparin Sodium (Porcine) 5,000 units 08/29/20 21:00 09/04/20 10:30 Heparin 5,000 Units/Ml Vial SC Not Given BID SANTOS Cefazolin Sodium/Dextrose 1 gm 50 mls @ 100 mls/hr 09/04/20 01:00 09/04/20 10:30 / Device IVPB 09/04/20 17:29 Not Given 0100,0900,1700 SANTOS Insulin Human Lispro 0 units 08/29/20 22:14 09/03/20 06:26 Humalog 300 Units/3 Ml Vial SC 2 unit .MODERATE SLIDING SC PRN Administration Moderate Correctional Scale Insulin Human NPH 12 unit 09/02/20 21:00 09/04/20 10:30 Nph, Human Insulin Isophane 300 Unit/3 Ml Vial SC Not Given BID SANTOS Insulin Human Regular 0 units 08/29/20 22:14 09/02/20 20:47 Insulin Regular 300 Units/3 Ml Vial SC 4 unit .BEDTIME SLIDING SC PRN Administration Bedtime Correctional Scale Ondansetron HCl 4 mg 08/29/20 18:04 09/04/20 14:59 Ondansetron Pf 4 Mg/2 Ml Vial IVP 4 mg Q6H PRN Administration Nausea/Vomiting Senna/Docusate Sodium 2 tab 08/29/20 18:04 09/01/20 17:01 Senokot S 8.6-50 Mg Tab PO 2 tab BID PRN Administration Constipation Sodium Bicarbonate 650 mg 09/03/20 15:00 09/04/20 15:00 Sodium Bicarbonate Tab 325 Mg Tab PO 650 mg TID SANTOS Administration Sodium Chloride 10 ml 08/29/20 21:00 09/04/20 10:30 Flush - Normal Saline 10 Ml Syringe IVF Not Given Q12HR SANTOS - Exam General Appearance: NAD, awake alert Eye: PERRL ENT: normocephalic atraumatic Neck: supple Heart: RRR Respiratory: CTAB, normal chest expansion Gastrointestinal: soft, normal bowel sounds Neurological: no focal deficits Musculoskeletal - other findings: Left hip dressing Psychiatric: A&O x 3 Hosp A/P - Plan 44-year-old female with a past medical history of multiple myeloma, diabetes, hypertension came w.. hypercalcemia and acute renal failure that was discovered on labs drawn this morning at [facility] #Acute renal failure likely secondary to multiple myeloma Cast nephropathy #Hypercalcemia likely secondary to multiple myeloma -Patient presented with a creatinine of 6.5 and a calcium of 14. Her last creatinine prior to that was normal on 06/18 Plan: -We will give 2 L bolus and start on normal saline 100 mL. Check bilateral renal ultrasound. Nephrology was consulted. -She has received zoledronic acid this morning. We will start dexamethasone [address] Perez for hypercalcemia and will also give calcitonin one injection 200 mg per neurology. Repeat calcium level in the morning -Renal ultrasound no abnormalities noted. - little improvement in creatinine level today. -Trial of dexamethasone 40 mg daily for 5 days.--Last dose next Tuesday. -Dr. Perez started her on Velcade Radiation oncology consult placed for possible palliative radiation treatment to left femur osteolytic lesions #Multiple myeloma -Status post Zometa and on Velcade . Per Dr. Perez, we will hold off on Revlimid due to her acute renal failure. #Hyponatremia -. Will hydrate with IV fluids and repeat BMP -Sodium did not improve. It remains the same. However I noticed that IV fluid has been discontinued. Will follow along with the renal. #Anemia -likely secondary to multiple myeloma -Hemoglobin 8.6, will continue to trend. 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 Vitamin D deficiency -Started her on p.o. supplement #Left hip pain Left femur lytic lesions related to multiple myeloma X-ray of the right hip and right knee showing mild degenerative arthrosis. She also has a numerous osteolytic lesions in the right hemipelvis right femur and the proximal right foreleg -Left hip x-ray shows extensive myelomatous lesions. Will order PT and make her nonweightbearing to her left leg Mild osteoarthritis changes --Radiation oncology is following with us. ---Recommends palliative radiation to bilateral distal femurs -But that has to be done after the surgical intervention. Dr. Mccrary is planning to do intramedullary nail fixation fixatation. --Plan for possible intramedullary nail fixation for the impending fracture on the left distal femur given the extensive lytic lesions. -Medical point of view, will make sure electrolytes and blood glucose are in the normal range and also will get the echo. Possible nail fixation to left femur, today Bilateral palliative radiation treatment for femur lytic lesions She will be started on Velcade on Tuesday and Cytoxan on Tuesday meanwhile continue dexamethasone 40 mg daily. 17 Patient received nail fixation to her left femur this morning. Plan for palliative radiation treatment to bilateral femur for osteolytic lesions 2D echo reviewed and normal EF. Plan to continue her chemo. Vein mapping and AV fistula evaluation Possible dialysis in the very near future. Patient is Jehovah witness. She would not accept any blood products. However with a low hemoglobin of 6.5 and being on chemo, very likely her hemoglobin going to be dropped. In the context of dialysis it is also high risk for her to be in the low hemoglobin level. This context she needs more education. Overall poor prognosis if she is not amenable for blood transfusion as anemia could be detrimental factor. We will request palliative to be on board i to aid with complex decision-making capacity in this unfortunate very young female. Daughter is not here today. Will also discuss with her.
--- NOTE | 2020-09-04 19:45 | OP ---
DATE OF PROCEDURE: 09/03/2020 PREOPERATIVE DIAGNOSIS: Left femur impending fracture with multiple myeloma lesions. POSTOPERATIVE DIAGNOSIS: Left femur impending fracture with multiple myeloma lesions. PROCEDURE: Long TFN nail, left femur. ANESTHESIA: General. ESTIMATED BLOOD LOSS: 100 mL. IMPLANTS: Synthes System was used with TFNA nail measuring 9 x 360 mm with an 80 mm hip screw. COMPLICATIONS: None. DRAINS: None. SPECIMEN: None. OUTCOME: Satisfactory. INDICATIONS FOR PROCEDURE: The patient is a 44-year-old lady who has a known history of multiple myeloma and has had increasing pain in both femurs. Workup has included plain x-ray, which shows multiple lytic lesions throughout the diaphysis of both femurs with some larger lesions in the metadiaphyseal region of the left femur and increasing pain. After discussion with the patient, we have decided to proceed with prophylactic nailing with a TFN device to stabilize both the femoral neck and femoral shaft. Informed consent has been obtained. I believe all questions have been answered. DESCRIPTION OF PROCEDURE: The patient was brought to the operating room and a time-out performed followed by induction of general anesthesia. Next, the patient was positioned supine on the fracture table with the left lower extremity held in longitudinal traction and the right lower extremity held in extension at the hip and longitudinally positioned on a bolster to allow for AP lateral imaging of the left femur. Next, a sterile prep and drape was performed in the left lateral thigh. A skin incision was made proximal to the greater trochanter. After skin was sharply incised, dissection was carried down bluntly such that the tip of the greater trochanter could be easily palpated. A threaded guidewire was then passed from the tip of the greater trochanter into the proximal femoral canal. This was followed by passage of a reamer over this threaded guidewire. Next, a 9 x 360 mm nail was passed over a ball-tipped guidewire, which was passed down the intramedullary canal of the femur under C-arm guidance. Once the nail was passed in non-reamed fashion, the jig was used to make a second incision distal to the first and then drive a threaded guidewire across lateral cortex of the femur up the femoral neck into the femoral head approaching a [id number] position. Measurement was taken off this guidewire and then the step reamer was passed over the guidewire to prepare a path for the hip screw. The hip screw was then placed and once fully seated, was locked in place with the locking mechanism at the proximal nail. This was then followed by passage of a single distal cross-lock screw. At the completion of this, the small incisions were irrigated with normal saline. The 2 small distal incisions were closed with anna. The proximal incision closed in layers with 0 Vicryl deep followed by 2-0 Vicryl and anna for the skin. Xeroform gauze and tape dressing was then applied to the lateral thigh and the patient was transferred to recovery room in stable condition. There were no complications. She tolerated the procedure well. Job ID: [id number]
[2020-09-05] MEDS: traMADol HCl 50 MG TAB PO PRN (01:55)
[2020-09-05 06:34] LABS: Hemoglobin 6.1 g/dL (12.0-16.0); Mean Corpuscular HGB CONC 34.5 g/dL (32.0-36.0); Mean Corpuscular Hemoglobin 32.9 pg (27.0-31.0); Mean Corpuscular Volume 95.3 fL (78.0-98.0); Mean Platelet Volume 8.2 fL (7.4-10.4); Platelet Count 61 thou/uL (130-400); RBC Distribution Width 11.6 % (11.5-14.5); Red Blood Cell (RBC) Count 1.86 mill/uL (4.20-5.40); White Blood Cell (WBC) Count 1.4 thou/uL (4.8-10.8)
[2020-09-05 06:43] LABS: Anion Gap 14 mmol/L (10-20); BUN (Urea Nitrogen) 59 mg/dL (7.0-18.7); Calc. Creatinine Clearance 18 mL/min (70-130); Calcium 6.9 mg/dL (7.8-10.44); Carbon Dioxide 26 mmol/L (22-29); Chloride 104 mmol/L (98-107); Glucose 89 mg/dL (70-105); Potassium 4.1 mmol/L (3.5-5.1); Sodium 140 mmol/L (136-145)
[2020-09-05] MEDS: Heparin 5,000 UNITS/ML VIAL SC SCH ×2 (08:17→20:19)
[2020-09-05] MEDS: Sodium Bicarbonate Tab 325 MG TAB PO SCH ×3 (08:20→20:36)
[2020-09-05] MEDS: Dexamethasone 4 MG TAB PO SCH (08:20)
[2020-09-05] MEDS: NPH, Human Insulin Isophane 300 UNIT/3 ML VIAL SC SCH ×2 (08:23→20:36)
[2020-09-05 09:05] LABS: Band 6 % (5-11); Eosinophils 6 % (0-10); Lymphocytes 12 % (21-51); MDiff Complete? YES; Monocytes 4 % (0-10); Neutrophil 72 % (42-75); Nucleated RBC 1 % (0); Platelet Morphology Comment Appears Decreased; Polychromasia SLIGHT = 2-3 cells (100X) (0-2/hpf)
[2020-09-05] MEDS: Polyethylene Glycol 3350 17 GM Packet PO SCH (10:06)
[2020-09-05] MEDS: Senokot 8.6 MG TAB PO SCH ×2 (10:06→20:36)
[2020-09-05 10:18] LABS: HBSAg Index 0.19 S/CO (0-0.99); Hep B Surf Ag Non-Reactive S/CO (NonReactive)
--- NOTE | 2020-09-05 10:38 | PRG ---
DATE OF SERVICE: 09/05/2020 SUBJECTIVE: A 44-year-old lady, being seen for end-stage renal disease. The patient denies any nausea, vomiting, or chest pain. PHYSICAL EXAMINATION: General: The patient is awake and alert. Vital Signs: Afebrile, pulse 81, breathing at 16, blood pressure 143/67. HEENT: Head normocephalic and atraumatic. Eyes intact, no ulcers. Nose intact, no ulcers. Ears intact, no ulcers. Neck: Supple. No JVD. Chest: Symmetrical and clear. Cardiovascular: Shows S1 and S2, no rub, no murmur. Gastrointestinal: Abdomen is soft, bowel sounds positive. Extremities: Show no edema or ulcers. Skin: Shows no rash or petechiae. Musculoskeletal: Shows no joint swelling or stiffness. Genitourinary: Shows no [place] or CVA tenderness. Neurologic: Motor intact. Cranial nerves intact. LABORATORY DATA: Labs show hemoglobin 6.1. Potassium is 4.1. ASSESSMENT AND PLAN: 1. Chronic kidney disease, stage 6. Risks versus benefits of dialysis were discussed, which include a very low hemoglobin, which can cause multiple complications including AK and stroke on the dialysis machine. Since the patient is Anglican and has multiple factors that are causing a low hemoglobin, the risks and benefits of dialysis were discussed, and the patient and the family will think about it. 2. Anemia, multifactorial. 3. Hypertension, stable. 4. Metabolic acidosis, improved. 5. Hyperkalemia, improved. No urgent indication for dialysis today. We will plan dialysis as needed. Overall prognosis is extremely poor. This was conveyed to the daughter, who was the doctor of naturopathic medicine as well. Job ID: [id number]
--- NOTE | 2020-09-05 11:47 | PDOC.FMACP ---
Advance Care Planning - Problem (1) Palliative care encounter Status: Acute Code(s): Z51.5 - ENCOUNTER FOR PALLIATIVE CARE (2) Acute kidney failure Status: Acute (3) Anemia Status: Acute Code(s): D64.9 - ANEMIA, UNSPECIFIED (4) Hypercalcemia Status: Acute Code(s): E83.52 - HYPERCALCEMIA (5) Myeloma Status: Acute Code(s): C90.00 - MULTIPLE MYELOMA NOT HAVING ACHIEVED REMISSION - Note Participants: patient, family, palliative care Summary: Discussed Advanced Care Planning. The diagnosis, prognosis and goals of care were discussed. Appropriate forms and documentation to accomplish the goals of care were discussed. All questions were answered. RYLAND Sevilla from Cancer clinic was present and facilitated communication/translation with family. Revisited concern expressed by Dr Hogan related to her ability to tolerate dialysis and low hemoglobin. Mrs Peter requested transition to DNAR status, will have Palliative Care Registrar assist in completing OOHDNAR. Requested consult for hospice with [facility] [place] Patient main concern is transition to home setting, she relayed she does nto desire to in home setting. CM to relay to [facility] Communicated with Dr Hogan, Dr Harrison, CM Will place spiritual care consult. Family and patient requested for one family member to spend the night secondary to difficult decisions made today. Will communicate with House Sup. Time Spent (mins): 45
[2020-09-05 12:17] LABS: Glucose 62 mg/dL (70-105)
--- NOTE | 2020-09-05 12:55 | PDOC.HOSPP ---
- Subjective Encounter Date: 09/05/20 Encounter Time: 12:10 Subjective: Patient's daughter at bedside the spouse at bedside. biofuels product manager discussing. Palliative care visited her. Patient expressed her interest on looking into hospice. Hospice will be consulted. - Objective Vital Signs & Weight: Vital Signs (12 hours) Temp Pulse Resp BP Pulse Ox 09/05/20 11:40 91 171/76 H 09/05/20 08:01 98.4 F 113 H 16 169/79 H 95 Weight Admit Weight 128 lb 4.8 oz Weight 140 lb 12.8 oz I&O: 09/04/20 09/05/20 09/06/20 06:59 06:59 06:59 Intake Total 240 420 180 Output Total 1470 900 Balance -1230 -480 180 Result Diagrams: 09/05/20 06:10 09/05/20 11:50 Additional Labs: Accuchecks 09/05/20 09/04/20 09/04/20 06:11 20:32 16:13 POC Glucose 84 130 H 131 H Hospitalist ROS - Medication Medications: Active Medications Generic Name Dose Route Start Last Admin Trade Name Freq PRN Reason Stop Dose Admin Hydrocodone Bitart/Acetaminophen 1 tab 08/29/20 18:04 09/04/20 15:04 Hydrocodone/Acetaminophen 5/325 Mg Tablet PO 1 tab Q4H PRN Administration Moderate to Severe Pain (6-10) Bisacodyl 10 mg 08/29/20 18:04 09/02/20 20:50 Bisacodyl 5 Mg Tab PO 10 mg DAILYPRN PRN Administration Constipation Dexamethasone 20 mg 09/05/20 09:00 09/05/20 08:20 Dexamethasone 4 Mg Tab PO 09/06/20 09:01 20 mg DAILY SANTOS Administration Heparin Sodium (Porcine) 5,000 units 08/29/20 21:00 09/05/20 08:17 Heparin 5,000 Units/Ml Vial SC Not Given BID SANTOS Insulin Human Lispro 0 units 08/29/20 22:14 09/03/20 06:26 Humalog 300 Units/3 Ml Vial SC 2 unit .MODERATE SLIDING SC PRN Administration Moderate Correctional Scale Insulin Human NPH 12 unit 09/02/20 21:00 09/05/20 08:23 Nph, Human Insulin Isophane 300 Unit/3 Ml Vial SC 12 unit BID SANTOS Administration Insulin Human Regular 0 units 08/29/20 22:14 09/02/20 20:47 Insulin Regular 300 Units/3 Ml Vial SC 4 unit .BEDTIME SLIDING SC PRN Administration Bedtime Correctional Scale Ondansetron HCl 4 mg 08/29/20 18:04 09/04/20 14:59 Ondansetron Pf 4 Mg/2 Ml Vial IVP 4 mg Q6H PRN Administration Nausea/Vomiting Polyethylene Glycol 17 gm 09/05/20 09:00 09/05/20 10:06 Polyethylene Glycol 3350 17 Gm Packet PO 17 gm DAILY SANTOS Administration Senna 2 tab 09/05/20 09:00 09/05/20 10:06 Senokot 8.6 Mg Tab PO 2 tab BID SANTOS Administration Senna/Docusate Sodium 2 tab 08/29/20 18:04 09/01/20 17:01 Senokot S 8.6-50 Mg Tab PO 2 tab BID PRN Administration Constipation Sodium Bicarbonate 650 mg 09/03/20 15:00 09/05/20 08:20 Sodium Bicarbonate Tab 325 Mg Tab PO 650 mg TID SANTOS Administration Sodium Chloride 10 ml 08/29/20 21:00 09/04/20 20:39 Flush - Normal Saline 10 Ml Syringe IVF 10 ml Q12HR SANTOS Administration Tramadol HCl 50 mg 09/03/20 18:21 09/05/20 01:55 Tramadol Hcl 50 Mg Tab PO 50 mg Q4H PRN Administration Pain 1-5 - Exam General Appearance: NAD, awake alert Eye: PERRL ENT: normocephalic atraumatic Neck: supple Heart: RRR, normal peripheral pulses Respiratory: CTAB, normal chest expansion Skin: normal turgor Neurological: cranial nerve grossly intact, no focal deficits Psychiatric: normal affect, normal behavior, A&O x 3 Hosp A/P - Plan 44-year-old female with a past medical history of multiple myeloma, diabetes, hypertension came w.. hypercalcemia and acute renal failure that was discovered on labs drawn this morning at [facility] #Acute renal failure likely secondary to multiple myeloma Cast nephropathy #Hypercalcemia likely secondary to multiple myeloma -Patient presented with a creatinine of 6.5 and a calcium of 14. Her last creatinine prior to that was normal on 06/18 Plan: -We will give 2 L bolus and start on normal saline 100 mL. Check bilateral renal ultrasound. Nephrology was consulted. -She has received zoledronic acid this morning. We will start dexamethasone [address] Perez for hypercalcemia and will also give calcitonin one injection 200 mg per neurology. Repeat calcium level in the morning -Renal ultrasound no abnormalities noted. - little improvement in creatinine level today. -Trial of dexamethasone 40 mg daily for 5 days.--Last dose next Tuesday. -Dr. Perez started her on Velcade Radiation oncology consult placed for possible palliative radiation treatment to left femur osteolytic lesions #Multiple myeloma -Status post Zometa and on Velcade . Per Dr. Perez, we will hold off on Revlimid due to her acute renal failure. #Hyponatremia -. Will hydrate with IV fluids and repeat BMP -Sodium did not improve. It remains the same. However I noticed that IV fluid has been discontinued. Will follow along with the renal. #Anemia -likely secondary to multiple myeloma -Hemoglobin 8.6, will continue to trend. 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 Vitamin D deficiency -Started her on p.o. supplement #Left hip pain Left femur lytic lesions related to multiple myeloma X-ray of the right hip and right knee showing mild degenerative arthrosis. She also has a numerous osteolytic lesions in the right hemipelvis right femur and the proximal right foreleg -Left hip x-ray shows extensive myelomatous lesions. Will order PT and make her nonweightbearing to her left leg Mild osteoarthritis changes --Radiation oncology is following with us. ---Recommends palliative radiation to bilateral distal femurs -But that has to be done after the surgical intervention. Dr. Mccrary is planning to do intramedullary nail fixation fixatation. --Plan for possible intramedullary nail fixation for the impending fracture on the left distal femur given the extensive lytic lesions. -Medical point of view, will make sure electrolytes and blood glucose are in the normal range and also will get the echo. Possible nail fixation to left femur, today Bilateral palliative radiation treatment for femur lytic lesions She will be started on Velcade on Tuesday and Cytoxan on Tuesday meanwhile continue dexamethasone 40 mg daily. 17th Patient received nail fixation to her left femur this morning. Plan for palliative radiation treatment to bilateral femur for osteolytic lesions 2D echo reviewed and normal EF. Plan to continue her chemo. Vein mapping and AV fistula evaluation Possible dialysis in the very near future. Patient is Jehovah witness. She would not accept any blood products. However with a low hemoglobin of 6.5 and being on chemo, very likely her hemoglobin going to be dropped. In the context of dialysis it is also high risk for her to be in the low hemoglobin level. This context she needs more education. Overall poor prognosis if she is not amenable for blood transfusion as anemia could be detrimental factor. We will request palliative to be on board i to aid with complex decision-making capacity in this unfortunate very young female. Daughter is not here today. Will also discuss with her. 18th Radiation oncologist 2 weeks from now achy she could have bilateral femur pal liative radiation treatment, if she chose to. My dialysis point of view with a low hemoglobin and being a Hindu she is a very high risk for further complications including high output, heart failure. Hospice evaluation can be done today. Patient should be able to make up her mind with the family discussion after receiving all the relevant medical information including ongoing palliative chemo treatment, to help her to make the appropriate decision making. DNAR.
[2020-09-05 16:08] LABS: Glucose 165 mg/dL (70-105)
[2020-09-06 05:33] LABS: #Lymphocytes 0.2 thou/uL (1.20-3.40); #Neutrophils 0.9 thou/uL (1.40-6.50); %Lymphocytes 15.3 % (21.0-51.0); %Monocytes 3.1 % (0.0-10.0); %Neutrophils 79.7 % (42.0-75.0); Hemoglobin 6.1 g/dL (12.0-16.0); Mean Corpuscular HGB CONC 34.7 g/dL (32.0-36.0); Mean Corpuscular Hemoglobin 32.9 pg (27.0-31.0); Mean Platelet Volume 8.5 fL (7.4-10.4); Platelet Count 59 thou/uL (130-400); RBC Distribution Width 11.5 % (11.5-14.5); Red Blood Cell (RBC) Count 1.85 mill/uL (4.20-5.40); White Blood Cell (WBC) Count 1.1 thou/uL (4.8-10.8)
[2020-09-06 05:39] LABS: Anion Gap 18 mmol/L (10-20); BUN (Urea Nitrogen) 50 mg/dL (7.0-18.7); Calc. Creatinine Clearance 16 mL/min (70-130); Calcium 6.9 mg/dL (7.8-10.44); Carbon Dioxide 22 mmol/L (22-29); Chloride 104 mmol/L (98-107); Glucose 71 mg/dL (70-105); Potassium 3.9 mmol/L (3.5-5.1); Sodium 140 mmol/L (136-145)
[2020-09-06] MEDS ORDERED: Ergocalciferol 1.25 MG(50,000 UNITS) CAP PO SCH (09:00)
[2020-09-06] MEDS: Dexamethasone 4 MG TAB PO SCH (09:22)
[2020-09-06] MEDS: NPH, Human Insulin Isophane 300 UNIT/3 ML VIAL SC SCH ×2 (09:23→21:04)
[2020-09-06] MEDS: Sodium Bicarbonate Tab 325 MG TAB PO SCH ×3 (09:23→21:04)
[2020-09-06] MEDS: Senokot 8.6 MG TAB PO SCH ×2 (09:23→21:05)
[2020-09-06] MEDS: Heparin 5,000 UNITS/ML VIAL SC SCH ×2 (09:23→21:05)
[2020-09-06] MEDS: Polyethylene Glycol 3350 17 GM Packet PO SCH (09:25)
--- NOTE | 2020-09-06 10:18 | PRG ---
DATE OF SERVICE: 09/06/2020 SUBJECTIVE: A 44-year-old female being seen for end-stage renal disease. The patient denied nausea, vomiting, chest pain. PHYSICAL EXAMINATION: GENERAL: The patient is awake, alert. VITAL SIGNS: Afebrile, pulse 96, breathing 16, blood pressure 134/63. HEENT: Head normocephalic and atraumatic. Eyes intact, no ulcers. Nose intact, no ulcers. Ears intact, no ulcers. NECK: Supple. No JVD. CHEST: Symmetrical and clear. CARDIOVASCULAR: Shows S1 and S2, no rub, no murmur. GASTROINTESTINAL: Abdomen is soft, bowel sounds positive. EXTREMITIES: Show no edema or ulcers. SKIN: Shows no rash or petechiae. MUSCULOSKELETAL: Shows no joint swelling or stiffness. GENITOURINARY: Shows no Menchaca or CVA tenderness. NEUROLOGIC: Motor intact. Cranial nerves intact. LABORATORY DATA: Labs show hemoglobin 6.1 potassium 3.9. ASSESSMENT AND PLAN: 1. Chronic kidney disease stage 6, no indication for dialysis. 2. Hypertension, stable. 3. Anemia. Patient will require some sort of blood transfusion in order to continue dialysis. Otherwise, the complications of dialysis are significant with such a low hemoglobin. This was explained to the family, and all questions were answered. PROGNOSIS: Poor. Job ID: [id number]
[2020-09-06] MEDS ORDERED: EPOETIN ALFA-EPBX (ESRD) 40,000 UNIT/ML VIAL SC SCH (17:00)
--- NOTE | 2020-09-06 18:11 | PDOC.HOSPP ---
- Subjective Encounter Date: 09/06/20 Encounter Time: 18:04 Subjective: This patient was seen and evaluated this evening. This is a case of an unfortunate 44-year-old whose medical history includes recently diagnosed multiple myeloma and has since developed acute kidney injury and severe anemia. She is being evaluated by multiple specialists including oncology, nephrology. The patient practices [employer]orship [employer] and is adamant about not getting blood transfusions. Her hemoglobin is only 6.1 and this would be very risky for her to be dialyzed as this would expose her to the risk of potential VT in order complications. However she is adamant that she does not want blood transfusion. They are now requesting to transfer to [facility] [place]. I have reached out to the transfer center line to see if this is even possible. - Objective Vital Signs & Weight: Vital Signs (12 hours) Temp Pulse Resp BP Pulse Ox 09/06/20 08:00 96 09/06/20 07:35 98.1 F 96 20 134/63 96 Weight Admit Weight 128 lb 4.8 oz Weight 140 lb 12.8 oz I&O: 09/05/20 09/06/20 09/07/20 06:59 06:59 06:59 Intake Total 420 660 690 Output Total 900 1250 Balance -480 -590 690 Result Diagrams: 09/06/20 05:00 09/06/20 05:00 Additional Labs: Accuchecks 09/06/20 09/05/20 05:10 20:37 POC Glucose 64 L 160 H Radiology Reviewed by me: Yes EKG Reviewed by me: Yes Hospitalist ROS - Review of Systems Constitutional: reports: sweats, weakness Eyes: reports: conjunctivae inflammation Respiratory: reports: cough, shortness of breath, SOB with excertion Gastrointestinal: reports: nausea, vomiting - Medication Medications: Active Medications Generic Name Dose Route Start Last Admin Trade Name Freq PRN Reason Stop Dose Admin Hydrocodone Bitart/Acetaminophen 1 tab 08/29/20 18:04 09/04/20 15:04 Hydrocodone/Acetaminophen 5/325 Mg Tablet PO 1 tab Q4H PRN Administration Moderate to Severe Pain (6-10) Bisacodyl 10 mg 08/29/20 18:04 09/02/20 20:50 Bisacodyl 5 Mg Tab PO 10 mg DAILYPRN PRN Administration Constipation Epoetin Lazaro-epbx 40,000 unit 09/06/20 17:00 09/06/20 16:51 Epoetin Lazaro-Epbx (Esrd) 40,000 Unit/Ml Vial SC 40,000 unit Q7D SANTOS Administration Ergocalciferol 1.25 mg 09/06/20 09:00 09/06/20 09:27 Ergocalciferol 1.25 Mg(50,000 Units) Cap PO 1.25 mg Q7DAYS SANTOS Administration Heparin Sodium (Porcine) 5,000 units 08/29/20 21:00 09/06/20 09:23 Heparin 5,000 Units/Ml Vial SC 5,000 units BID SANTOS Administration Insulin Human Lispro 0 units 08/29/20 22:14 09/03/20 06:26 Humalog 300 Units/3 Ml Vial SC 2 unit .MODERATE SLIDING SC PRN Administration Moderate Correctional Scale Insulin Human NPH 12 unit 09/02/20 21:00 09/06/20 09:23 Nph, Human Insulin Isophane 300 Unit/3 Ml Vial SC Not Given BID [facility] Insulin Human Regular 0 units 08/29/20 22:14 09/02/20 20:47 Insulin Regular 300 Units/3 Ml Vial SC 4 unit .BEDTIME SLIDING SC PRN Administration Bedtime Correctional Scale Ondansetron HCl 4 mg 08/29/20 18:04 09/04/20 14:59 Ondansetron Pf 4 Mg/2 Ml Vial IVP 4 mg Q6H PRN Administration Nausea/Vomiting Polyethylene Glycol 17 gm 09/05/20 09:00 09/06/20 09:25 Polyethylene Glycol 3350 17 Gm Packet PO 17 gm DAILY SANTOS Administration Senna 2 tab 09/05/20 09:00 09/06/20 09:23 Senokot 8.6 Mg Tab PO 2 tab BID SANTOS Administration Senna/Docusate Sodium 2 tab 08/29/20 18:04 09/01/20 17:01 Senokot S 8.6-50 Mg Tab PO 2 tab BID PRN Administration Constipation Sodium Bicarbonate 650 mg 09/03/20 15:00 09/06/20 16:51 Sodium Bicarbonate Tab 325 Mg Tab PO 650 mg TID SANTOS Administration Sodium Chloride 10 ml 08/29/20 21:00 09/06/20 09:24 Flush - Normal Saline 10 Ml Syringe IVF 10 ml Q12HR SANTOS Administration Tramadol HCl 50 mg 09/03/20 18:21 09/05/20 01:55 Tramadol Hcl 50 Mg Tab PO 50 mg Q4H PRN Administration Pain 1-5 - Exam General Appearance: NAD, awake alert, ill appearing Eye: PERRL, anicteric sclera ENT: normocephalic atraumatic, no oropharyngeal lesions, moist mucosa Neck: supple, symmetric, no JVD, no thyromegaly, no lymphadenopathy Heart: RRR, no murmur, no gallops, no rubs Respiratory: CTAB, no wheezes, no rales Gastrointestinal: soft, non-tender, non-distended Neurological: cranial nerve grossly intact, normal sensation to touch Psychiatric: normal affect, normal behavior Hosp A/P - Plan 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 Acute kidney injury. Patient with likely acute kidney injury precipitated by the multiple myeloma. She is in need of dialysis however she is very anemic. Her hemoglobin is only 6.1 and dialyzing her will be very risky. Nephrology evaluation is ongoing and I will defer to them about potential interventions. 2. Hypercalcemia. This has resolved. 3. Anemia. Likely multifactorial. Suspect related today multiple myeloma versus medication induced. She does look pale on clinical exam but no obvious bleeding noted. Patient does not want blood transfusion as she is a Worship. 4. Pathological fractures. Likely related to the history of multiple myeloma. She is status post left hip joint transfemoral nailing. 5. Multiple myeloma. Defer to medical oncology about ongoing treatment. Patient was transferred to [facility].
[2020-09-06] MEDS: Insulin Regular 300 UNITS/3 ML VIAL SC PRN (21:04)
[2020-09-07 07:07] LABS: Anion Gap 15 mmol/L (10-20); BUN (Urea Nitrogen) 53 mg/dL (7.0-18.7); Calc. Creatinine Clearance 17 mL/min (70-130); Calcium 6.9 mg/dL (7.8-10.44); Carbon Dioxide 24 mmol/L (22-29); Chloride 104 mmol/L (98-107); Glucose 156 mg/dL (70-105); Potassium 4.1 mmol/L (3.5-5.1); Sodium 139 mmol/L (136-145)
[2020-09-07 07:15] LABS: Hemoglobin 5.7 g/dL (12.0-16.0); White Blood Cell (WBC) Count 0.7 thou/uL (4.8-10.8)
[2020-09-07 07:36] LABS: #Lymphocytes 0.1 thou/uL (1.20-3.40); #Neutrophils 0.5 thou/uL (1.40-6.50); %Eosinophils 3.9 % (0.0-10.0); %Lymphocytes 19.8 % (21.0-51.0); %Monocytes 5.9 % (0.0-10.0); %Neutrophils 70.5 % (42.0-75.0); Mean Corpuscular HGB CONC 35.3 g/dL (32.0-36.0); Mean Corpuscular Hemoglobin 33.6 pg (27.0-31.0); Mean Corpuscular Volume 95.2 fL (78.0-98.0); Mean Platelet Volume 9.1 fL (7.4-10.4); Platelet Count 68 thou/uL (130-400); RBC Distribution Width 11.3 % (11.5-14.5); Red Blood Cell (RBC) Count 1.69 mill/uL (4.20-5.40)
[2020-09-07] MEDS: Heparin 5,000 UNITS/ML VIAL SC SCH ×2 (08:22→20:33)
[2020-09-07] MEDS: Polyethylene Glycol 3350 17 GM Packet PO SCH (09:33)
[2020-09-07] MEDS: Senokot 8.6 MG TAB PO SCH ×2 (09:33→20:33)
[2020-09-07] MEDS: NPH, Human Insulin Isophane 300 UNIT/3 ML VIAL SC SCH ×2 (10:37→20:47)
[2020-09-07] MEDS: Sodium Bicarbonate Tab 325 MG TAB PO SCH ×2 (10:37→17:41)
[2020-09-07] MEDS: HumaLOG 300 UNITS/3 ML VIAL SC PRN (11:44)
--- NOTE | 2020-09-07 12:17 | PDOC.BPN ---
- Brief Progress Note Encounter Date: 09/07/20 Encounter Time: 11:00 Subjective: Patient is seen and examined in the room. Patient speaks Uzbek, patient's family was present in the room who helped in translation. Patient complains of weakness. Family is hoping patient could be transferred to [facility] for further treatment. She is not complaining of shortness of breath. As per RN patient had about 200 mL for 7 hours since start of shift. Patient does not have Menchaca catheter Review of systems Gen.: No fever, no chills All the 14 systems reviewed except for the ones mentioned above are negative Physical examination Vital Signs (24 hours) Temp Pulse Resp BP Pulse Ox 09/07/20 16:00 97.0 F L 82 18 144/66 H 98 09/07/20 12:00 99.3 F 76 18 140/70 95 09/07/20 08:00 99.3 F 84 18 138/66 96 09/07/20 03:50 99.1 F 87 14 131/61 97 09/06/20 23:19 99.5 F 92 12 147/68 H 97 09/06/20 19:37 99.0 F 91 16 162/77 H 97 Intake & Output - 24 hours 09/07/20 09/08/20 06:59 06:59 Intake Total 940 250 Output Total 500 400 Balance 440 -150 Intake: Oral 940 250 Output: Urine 500 400 Other: # Measured Voids 3 # Unmeasured Voids 2 # Bowel Movements 1 4 # Bowel Movement Diapers 1 Constitutional: Patient appears weak and tired HEENT: Mucous membranes moist, pale + Neck: Trachea midline, no lymphadenopathy Heart: Regular rate and rhythm; no murmurs Lungs: Air entry equal bilateral; no wheezes Abdomen: Soft; nontender; no guarding/tenderness/rebound Extremities: No calf tenderness; no ulcers, no bruises Neurological: Patient is awake, following commands Skin: No rash, no ulcers Psychological: Not agitated Labs and Imaging reviewed Laboratory Results - last 24 hr 09/06/20 09/07/20 09/07/20 20:48 06:16 06:25 WBC RBC Hgb Hct MCV MCH MCHC RDW Plt Count MPV Neutrophils % Neutrophils % (Manual) Lymphocytes % Monocytes % Eosinophils % Basophils % Neutrophils # Lymphocytes # Monocytes # Eosinophils # Basophils # Sodium 139 Potassium 4.1 Chloride 104 Carbon Dioxide 24 Anion Gap 15 BUN 53 H Creatinine 4.23 H Estimated GFR (MDRD) 11 Glucose 156 H POC Glucose 358 H 146 H Calcium 6.9 L 09/07/20 09/07/20 06:25 11:19 WBC 0.7 L* RBC 1.69 L Hgb 5.7 L* Hct 16.0 L MCV 95.2 MCH 33.6 H MCHC 35.3 RDW 11.3 L Plt Count 68 L MPV 9.1 Neutrophils % 70.5 Neutrophils % (Manual) Not Reportable Lymphocytes % 19.8 L Monocytes % 5.9 Eosinophils % 3.9 Basophils % 0.0 Neutrophils # 0.5 L Lymphocytes # 0.1 L Monocytes # 0.0 L Eosinophils # 0.0 Basophils # 0.0 Sodium Potassium Chloride Carbon Dioxide Anion Gap BUN Creatinine Estimated GFR (MDRD) Glucose POC Glucose 181 H Calcium Active Medications Generic Name Dose Route Start Last Admin Trade Name Freq PRN Reason Stop Dose Admin Acetaminophen 650 mg 08/29/20 18:04 Acetaminophen 325 Mg Tab PO Q4H PRN Headache/Fever/Mild Pain (1-3) Acetaminophen 1,000 mg 09/03/20 18:21 Acetaminophen 500 Mg Tab PO Q6H PRN Moderate to Severe Pain (6-10) Hydrocodone Bitart/Acetaminophen 1 tab 08/29/20 18:04 09/04/20 15:04 Hydrocodone/Acetaminophen 5/325 Mg Tablet PO 1 tab Q4H PRN Administration Moderate to Severe Pain (6-10) Bisacodyl 10 mg 08/29/20 18:04 09/02/20 20:50 Bisacodyl 5 Mg Tab PO 10 mg DAILYPRN PRN Administration Constipation Dextrose/Water 25 gm 08/29/20 22:14 Dextrose 50% Abboject 50 Ml Syringe SLOW IVP PRN PRN Hypoglycemia Epoetin Lazaro-epbx 40,000 unit 09/06/20 17:00 09/06/20 16:51 Epoetin Lazaro-Epbx (Esrd) 40,000 Unit/Ml Vial SC 40,000 unit Q7D SANTOS Administration Ergocalciferol 1.25 mg 09/06/20 09:00 09/06/20 09:27 Ergocalciferol 1.25 Mg(50,000 Units) Cap PO 1.25 mg Q7DAYS SANTOS Administration Furosemide 40 mg 09/07/20 19:30 Furosemide 40 Mg/4 Ml Vial SLOW IVP 09/07/20 21:30 1930 [facility] Glucagon 1 mg 08/29/20 22:14 Glucagon 1 Mg/Ml Vial IM PRN PRN Hypoglycemia Heparin Sodium (Porcine) 5,000 units 08/29/20 21:00 09/07/20 08:22 Heparin 5,000 Units/Ml Vial SC Not Given BID [facility] Dextrose/Water 1,000 mls @ 0 mls/hr 08/29/20 22:14 D5w IV .Q0M PRN Hypoglycemia As Directed Cefazolin Sodium/Dextrose 2 gm 50 mls @ 100 mls/hr 09/03/20 18:30 / Device IVPB ONCALL-OR [facility] Insulin Human Lispro 0 units 08/29/20 22:14 09/07/20 11:44 Humalog 300 Units/3 Ml Vial SC 2 unit .MODERATE SLIDING SC PRN Administration Moderate Correctional Scale Insulin Human NPH 12 unit 09/02/20 21:00 09/07/20 10:37 Nph, Human Insulin Isophane 300 Unit/3 Ml Vial SC 12 unit BID [facility] Administration Insulin Human Regular 0 units 08/29/20 22:14 09/06/20 21:04 Insulin Regular 300 Units/3 Ml Vial SC 5 unit .BEDTIME SLIDING SC PRN Administration Bedtime Correctional Scale Morphine Sulfate 2 mg 09/03/20 21:09 Morphine 2 Mg/Ml Vial SLOW IVP Q4H PRN Moderate to Severe Pain (6-10) Ondansetron HCl 4 mg 08/29/20 18:04 09/04/20 14:59 Ondansetron Pf 4 Mg/2 Ml Vial IVP 4 mg Q6H PRN Administration Nausea/Vomiting Polyethylene Glycol 17 gm 09/05/20 09:00 09/07/20 09:33 Polyethylene Glycol 3350 17 Gm Packet PO Not Given DAILY [facility] Senna 2 tab 09/05/20 09:00 09/07/20 09:33 Senokot 8.6 Mg Tab PO Not Given BID SANTOS Senna/Docusate Sodium 2 tab 08/29/20 18:04 09/01/20 17:01 Senokot S 8.6-50 Mg Tab PO 2 tab BID PRN Administration Constipation Sodium Chloride 10 ml 08/29/20 21:00 09/07/20 10:37 Flush - Normal Saline 10 Ml Syringe IVF 10 ml Q12HR SANTOS Administration Sodium Chloride 10 ml 08/29/20 19:00 Flush - Normal Saline 10 Ml Syringe IVF PRN PRN Saline Flush Tramadol HCl 50 mg 09/03/20 18:21 09/05/20 01:55 The options for this patient Hcl 50 Mg Tab PO 50 mg Q4H PRN Administration Pain 1-5 Assessment and plan CKD stage Anemia/pancytopenia Hypertension Multiple myeloma Patient has total of 1250 ml of urine output yesterday. Patient does not have Menchaca catheter, she has oliguria. We will give trial of Lasix 40 mg IV 1 dose. Monitor input and output. Change diet to low potassium, renal diet. Bicarbonate level is stable, will hold sodium bicarbonate. Discussed with patient and patient's family at length. Explained the consequence of her anemia. Patient declined transfusion of blood products. Peritoneal dialysis could be an option for the patient. Discussed with RN and primary team Thank you for allowing me to participate in the management of this pt
--- NOTE | 2020-09-07 15:34 | PDOC.HOSPP ---
- Subjective Encounter Date: 09/07/20 Encounter Time: 15:32 Subjective: She is more pancytopenic today. She is still refusing blood transfusions. She practices Druze denomination. No indications for Granix at this time. Family inquired about transfer to [facility]. However this would likely be a lateral transfer. I did discuss the case with the pile trimmer who will plan to initiate peritoneal dialysis as opposed to hemodialysis. Her creatinine is stable around 4.5. Potassium is normal. This patient's overall prognosis appears to be poor. We will honor her wishes and not give her any blood transfusions. - Objective Vital Signs & Weight: Vital Signs (12 hours) Temp Pulse Resp BP Pulse Ox 09/07/20 12:00 99.3 F 76 18 140/70 95 09/07/20 08:00 99.3 F 84 18 138/66 96 09/07/20 03:50 99.1 F 87 14 131/61 97 Weight Admit Weight 128 lb 4.8 oz Weight 140 lb 12.8 oz I&O: 09/06/20 09/07/20 09/08/20 06:59 06:59 06:59 Intake Total 660 940 250 Output Total 1250 500 Balance -590 440 250 Result Diagrams: 09/07/20 06:25 09/07/20 06:25 Additional Labs: Accuchecks 09/07/20 09/07/20 09/06/20 11:19 06:16 20:48 POC Glucose 181 H 146 H 358 H Radiology Reviewed by me: Yes EKG Reviewed by me: Yes Hospitalist ROS - Review of Systems Constitutional: reports: sweats, weakness, malaise ENT: reports: mouth pain Gastrointestinal: reports: nausea All other systems reviewed; all pertinent +/- noted in HPI/Subj - Medication Medications: Active Medications Generic Name Dose Route Start Last Admin Trade Name Freq PRN Reason Stop Dose Admin Hydrocodone Bitart/Acetaminophen 1 tab 08/29/20 18:04 09/04/20 15:04 Hydrocodone/Acetaminophen 5/325 Mg Tablet PO 1 tab Q4H PRN Administration Moderate to Severe Pain (6-10) Bisacodyl 10 mg 08/29/20 18:04 09/02/20 20:50 Bisacodyl 5 Mg Tab PO 10 mg DAILYPRN PRN Administration Constipation Epoetin Lazaro-epbx 40,000 unit 09/06/20 17:00 09/06/20 16:51 Epoetin Lazaro-Epbx (Esrd) 40,000 Unit/Ml Vial SC 40,000 unit Q7D SANTOS Administration Ergocalciferol 1.25 mg 09/06/20 09:00 09/06/20 09:27 Ergocalciferol 1.25 Mg(50,000 Units) Cap PO 1.25 mg Q7DAYS SANTOS Administration Heparin Sodium (Porcine) 5,000 units 08/29/20 21:00 09/07/20 08:22 Heparin 5,000 Units/Ml Vial SC Not Given BID SANTOS Insulin Human Lispro 0 units 08/29/20 22:14 09/07/20 11:44 Humalog 300 Units/3 Ml Vial SC 2 unit .MODERATE SLIDING SC PRN Administration Moderate Correctional Scale Insulin Human NPH 12 unit 09/02/20 21:00 09/07/20 10:37 Nph, Human Insulin Isophane 300 Unit/3 Ml Vial SC 12 unit BID SANTOS Administration Insulin Human Regular 0 units 08/29/20 22:14 09/06/20 21:04 Insulin Regular 300 Units/3 Ml Vial SC 5 unit .BEDTIME SLIDING SC PRN Administration Bedtime Correctional Scale Ondansetron HCl 4 mg 08/29/20 18:04 09/04/20 14:59 Ondansetron Pf 4 Mg/2 Ml Vial IVP 4 mg Q6H PRN Administration Nausea/Vomiting Polyethylene Glycol 17 gm 09/05/20 09:00 09/07/20 09:33 Polyethylene Glycol 3350 17 Gm Packet PO Not Given DAILY SANTOS Senna 2 tab 09/05/20 09:00 09/07/20 09:33 Senokot 8.6 Mg Tab PO Not Given BID SANTOS Senna/Docusate Sodium 2 tab 08/29/20 18:04 09/01/20 17:01 Senokot S 8.6-50 Mg Tab PO 2 tab BID PRN Administration Constipation Sodium Bicarbonate 650 mg 09/03/20 15:00 09/07/20 10:37 Sodium Bicarbonate Tab 325 Mg Tab PO 650 mg TID SANTOS Administration Sodium Chloride 10 ml 08/29/20 21:00 09/07/20 10:37 Flush - Normal Saline 10 Ml Syringe IVF 10 ml Q12HR SANTOS Administration Tramadol HCl 50 mg 09/03/20 18:21 09/05/20 01:55 Tramadol Hcl 50 Mg Tab PO 50 mg Q4H PRN Administration Pain 1-5 - Exam General Appearance: awake alert, ill appearing Eye: anicteric sclera ENT: normocephalic atraumatic, no oropharyngeal lesions, moist mucosa Neck: supple, symmetric, no JVD, no thyromegaly Heart: RRR, no murmur, no gallops, no rubs Respiratory: CTAB, no wheezes, no rales Gastrointestinal: soft, non-tender, non-distended, normal bowel sounds Neurological: cranial nerve grossly intact, normal sensation to touch Psychiatric: normal affect, normal behavior, A&O x 3 Hosp A/P - Plan #1. Acute kidney injury. Patient with likely acute kidney injury precipitated by the multiple myeloma. She is in need of dialysis however she is very anemic. Her hemoglobin is only 6.1 and dialyzing her will be very risky. Nephrology evaluation is ongoing and I will defer to them about potential interventions. 09/07/2020. Nephrology now will consider peritoneal dialysis. 2. Hypercalcemia. This has resolved. 3. Anemia. Likely multifactorial. Suspect related to multiple myeloma versus medication induced. She does look pale on clinical exam but no obvious bleeding noted. Patient does not want blood transfusion as she is a Druze. 09/07/2020. She is more anemic today. She continues to refuse blood transfusions. We will honor her wishes. She understand that she is at risk of worsening of her conditions up to and including 4. Pathological fractures. Likely related to the history of multiple myeloma. She is status post left hip joint transfemoral nailing. 5. Multiple myeloma. Defer to medical oncology about ongoing treatment. Patient wants transfer to [facility] [place].
[2020-09-07] MEDS ORDERED: Furosemide 40 MG/4 ML VIAL SLOW IVP SCH (19:30)
[2020-09-07] MEDS: traMADol HCl 50 MG TAB PO PRN (23:07)
[2020-09-08 06:32] LABS: Hemoglobin 5.8 g/dL (12.0-16.0); Mean Corpuscular HGB CONC 34.6 g/dL (32.0-36.0); Mean Corpuscular Hemoglobin 32.8 pg (27.0-31.0); Mean Corpuscular Volume 94.8 fL (78.0-98.0); Mean Platelet Volume 8.6 fL (7.4-10.4); Platelet Count 93 thou/uL (130-400); RBC Distribution Width 11.4 % (11.5-14.5); Red Blood Cell (RBC) Count 1.78 mill/uL (4.20-5.40); White Blood Cell (WBC) Count 0.3 thou/uL (4.8-10.8)
[2020-09-08 06:48] LABS: Anion Gap 14 mmol/L (10-20); BUN (Urea Nitrogen) 43 mg/dL (7.0-18.7); Calc. Creatinine Clearance 16 mL/min (70-130); Calcium 7.1 mg/dL (7.8-10.44); Carbon Dioxide 25 mmol/L (22-29); Chloride 105 mmol/L (98-107); Glucose 63 mg/dL (70-105); Potassium 4.1 mmol/L (3.5-5.1); Sodium 140 mmol/L (136-145)
[2020-09-08 07:53] LABS: MDiff Complete? YES; Platelet Morphology Comment Appears Decreased; Polychromasia SLIGHT = 2-3 cells (100X) (0-2/hpf); Tear Drops SLIGHT = 2-5 cells (100X) (0-1/hpf)
[2020-09-08] MEDS: Heparin 5,000 UNITS/ML VIAL SC SCH ×2 (09:16→21:32)
[2020-09-08] MEDS: Polyethylene Glycol 3350 17 GM Packet PO SCH (09:19)
[2020-09-08] MEDS: Senokot 8.6 MG TAB PO SCH ×2 (09:19→21:29)
[2020-09-08] MEDS: NPH, Human Insulin Isophane 300 UNIT/3 ML VIAL SC SCH ×2 (09:20→21:33)
--- NOTE | 2020-09-08 12:17 | PRG ---
DATE OF SERVICE: 09/08/2020 SUBJECTIVE: A 44-year-old female being seen for end-stage renal disease. The patient denies any nausea, vomiting, or chest pain. OBJECTIVE: GENERAL: Patient is awake, alert. VITAL SIGNS: Afebrile, pulse 75, breathing 16, blood pressure 132/64. HEENT: Head normocephalic and atraumatic. Eyes intact, no ulcers. Nose intact, no ulcers. Ears intact, no ulcers. NECK: Supple. No JVD. CHEST: Symmetrical and clear. CARDIOVASCULAR: Shows S1 and S2, no rub, no murmur. GASTROINTESTINAL: Abdomen is soft, bowel sounds positive. EXTREMITIES: Show no edema or ulcers. SKIN: Shows no rash or petechiae. MUSCULOSKELETAL: Shows no joint swelling or stiffness. GENITOURINARY: Shows no [place] or CVA tenderness. NEUROLOGIC: Motor intact. Cranial nerves intact. LABORATORY DATA: Hemoglobin is 5.8. Creatinine 4.3. ASSESSMENT: 1. Stage 6 chronic kidney disease. The patient is not a candidate for dialysis due to very low hemoglobin. Patient is on Epogen. PD was offered, but the patient is a poor candidate for PD catheter placement. Family wants to transfer care to [facility], so Refinery Process Engineer will be consulted. 2. Anemia, would recommend transfusion. Patient is a Mandaeism. 3. Hypertension, stable. Medication based on GFR appropriate. 4. Hyperkalemia, resolved. No urgent indication for dialysis today. Job ID: [id number]
--- NOTE | 2020-09-08 13:22 | PDOC.HOSPP ---
- Subjective Encounter Date: 09/08/20 Encounter Time: 13:10 Subjective: I visited with the patient and her daughter at the bedside today. The cold roll packer sheet iron was with me during this visit this morning. This is a case of an unfortunate 44-year-old woman with a recent lambda light chain multiple myeloma diagnosed about 2 months ago who had initial treatment of Velcade and Cytoxan and unfortunately developed acute renal failure. 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 She also is pancytopenic likely resulting from the chemotherapy. She is extremely pancytopenic but she is a practicing Oriental orthodox patient who absolutely does not want any blood products. We discussed the need for this transfusion to give her a chance of improvement. Patient absolutely does not want any blood products transfused. She understands that without a blood transfusion she is going to be at risk of from her disease process. She understand this risk and still does not want any blood product transfused. She is awake and alert and her daughter was at the bedside on multiple occasions when we had conversations about the need for transfusion but she would have none of it. They requested for a transfer to [facility]. This was discussed in detail with the family about this being a lateral transfer and they want us to go ahead and initiate the transfer. - Objective Vital Signs & Weight: Vital Signs (12 hours) Temp Pulse Resp BP BP Pulse Ox 09/08/20 08:00 99.2 F 98 18 123/64 95 09/08/20 04:00 98.6 F 92 16 133/64 95 Weight Admit Weight 128 lb 4.8 oz Weight 140 lb 12.8 oz I&O: 09/07/20 09/08/20 09/09/20 06:59 06:59 06:59 Intake Total 940 590 Output Total 500 400 Balance 440 190 Result Diagrams: 09/08/20 06:15 09/08/20 03:30 Additional Labs: Accuchecks 09/08/20 09/08/20 09/07/20 11:50 06:02 20:45 POC Glucose 131 H 60 L 144 H 09/07/20 16:30 POC Glucose 106 H Radiology Reviewed by me: Yes EKG Reviewed by me: Yes Hospitalist ROS - Review of Systems Constitutional: reports: weakness, malaise Respiratory: reports: SOB with excertion Gastrointestinal: reports: nausea Neurological: reports: weakness - Medication Medications: Active Medications Generic Name Dose Route Start Last Admin Trade Name Freq PRN Reason Stop Dose Admin Hydrocodone Bitart/Acetaminophen 1 tab 08/29/20 18:04 09/04/20 15:04 Hydrocodone/Acetaminophen 5/325 Mg Tablet PO 1 tab Q4H PRN Administration Moderate to Severe Pain (6-10) Bisacodyl 10 mg 08/29/20 18:04 09/02/20 20:50 Bisacodyl 5 Mg Tab PO 10 mg DAILYPRN PRN Administration Constipation Epoetin Lazaro-epbx 40,000 unit 09/06/20 17:00 09/06/20 16:51 Epoetin Lazaro-Epbx (Esrd) 40,000 Unit/Ml Vial SC 40,000 unit Q7D SANTOS Administration Ergocalciferol 1.25 mg 09/06/20 09:00 09/06/20 09:27 Ergocalciferol 1.25 Mg(50,000 Units) Cap PO 1.25 mg Q7DAYS SANTOS Administration Heparin Sodium (Porcine) 5,000 units 08/29/20 21:00 09/08/20 09:16 Heparin 5,000 Units/Ml Vial SC Not Given BID SANTOS Insulin Human Lispro 0 units 08/29/20 22:14 09/07/20 11:44 Humalog 300 Units/3 Ml Vial SC 2 unit .MODERATE SLIDING SC PRN Administration Moderate Correctional Scale Insulin Human NPH 12 unit 09/02/20 21:00 09/08/20 09:20 Nph, Human Insulin Isophane 300 Unit/3 Ml Vial SC 12 unit BID SANTOS Administration Insulin Human Regular 0 units 08/29/20 22:14 09/06/20 21:04 Insulin Regular 300 Units/3 Ml Vial SC 5 unit .BEDTIME SLIDING SC PRN Administration Bedtime Correctional Scale Ondansetron HCl 4 mg 08/29/20 18:04 09/04/20 14:59 Ondansetron Pf 4 Mg/2 Ml Vial IVP 4 mg Q6H PRN Administration Nausea/Vomiting Polyethylene Glycol 17 gm 09/05/20 09:00 09/08/20 09:19 Polyethylene Glycol 3350 17 Gm Packet PO Not Given DAILY SANTOS Senna 2 tab 09/05/20 09:00 09/08/20 09:19 Senokot 8.6 Mg Tab PO Not Given BID SANTOS Senna/Docusate Sodium 2 tab 08/29/20 18:04 09/01/20 17:01 Senokot S 8.6-50 Mg Tab PO 2 tab BID PRN Administration Constipation Sodium Chloride 10 ml 08/29/20 21:00 09/08/20 09:20 Flush - Normal Saline 10 Ml Syringe IVF 10 ml Q12HR SANTOS Administration Tramadol HCl 50 mg 09/03/20 18:21 09/07/20 23:07 Tramadol Hcl 50 Mg Tab PO 50 mg Q4H PRN Administration Pain 1-5 - Exam General Appearance: ill appearing Eye: PERRL Gastrointestinal: soft Psychiatric: normal affect, normal behavior, A&O x 3 Hosp A/P - Plan PT/OT, foster care social worker #1. Acute kidney injury. Patient with likely acute kidney injury precipitated by the multiple myeloma. She is in need of dialysis however she is very anemic. Her hemoglobin is only 6.1 and dialyzing her will be very risky. Nephrology evaluation is ongoing and I will defer to them about potential interventions. 09/07/2020. Nephrology now will consider peritoneal dialysis. 2. Hypercalcemia. This has resolved. 3. Anemia. Likely multifactorial. Suspect related to multiple myeloma versus medication induced. She does look pale on clinical exam but no obvious bleeding noted. Patient does not want blood transfusion as she is a Oriental orthodox. 09/07/2020. She is more anemic today. She continues to refuse blood transfusions. We will honor her wishes. She understand that she is at risk of worsening of her conditions up to and including 4. Pathological fractures. Likely related to the history of multiple myeloma. She is status post left hip joint transfemoral nailing. 5. Multiple myeloma. Defer to medical oncology about ongoing treatment. Patient wants transfer to [facility] cancer [place].
--- NOTE | 2020-09-08 14:33 | PDOC.MOPN ---
Interval History: denies any SOB, CP. palpitations. Wants to transfer to [facility]. [facility] declined transfer request. - Vital Signs Vital Signs: Vital Signs (12 hours) Temp Pulse Resp BP BP BP Pulse Ox 09/08/20 13:26 141/70 H 09/08/20 12:00 98.8 F 85 18 136/69 98 09/08/20 08:00 99.2 F 98 18 123/64 95 09/08/20 04:00 98.6 F 92 16 133/64 95 Weight Admit Weight 128 lb 4.8 oz Weight 140 lb 12.8 oz - Physical Exam General: Alert HEENT: Atraumatic Lungs: Clear to auscultation Cardiovascular: Regular rate Extremities: No clubbing, No cyanosis, No edema, Normal pulses, No tenderness/swelling Neurological: Normal speech Psych/Mental Status: Mental status NL - Labs Result Diagrams: 09/08/20 06:15 09/08/20 03:30 Lab results: Laboratory Results - last 24 hr 09/08/20 11:50: POC Glucose 131 H 09/08/20 07:48: Vitamin B12 537 09/08/20 06:15: WBC 0.3 L*, RBC 1.78 L, Hgb 5.8 L*, Hct 16.9 L, MCV 94.8, MCH 32.8 H, MCHC 34.6, RDW 11.4 L, Plt Count 93 L, MPV 8.6, Neutrophils % (Manual) Not Reportable, Lymphocytes # Not Reportable, Plt Morphology Comment Appears Decreased L, Polychromasia SLIGHT = 2-3 cells, Tear Drop Cells SLIGHT = 2-5 cells 09/08/20 06:02: POC Glucose 60 L 09/08/20 03:30: Sodium 140, Potassium 4.1, Chloride 105, Carbon Dioxide 25, Anion Gap 14, BUN 43 H, Creatinine 4.30 H, Estimated GFR (MDRD) 11, Glucose 63 L, Calcium 7.1 L 09/07/20 20:45: POC Glucose 144 H 09/07/20 16:30: POC Glucose 106 H Status: lab reviewed by me A/P - Problem (1) Acute kidney failure Current Visit: Yes Status: Acute (2) Anemia Current Visit: Yes Code(s): D64.9 - ANEMIA, UNSPECIFIED Status: Acute (3) Myeloma Current Visit: Yes Code(s): C90.00 - MULTIPLE MYELOMA NOT HAVING ACHIEVED REMISSION Status: Acute - Plan Plan: 1. neutropenic, likely from MM and chemo. 2. Velcade held. Recd decadron on Tuesday and Tuesday 3. Refuses blood transfusion for hgb 5.8, recd 40,000 units of procrit on 08/1920. Next dose on 09/13/20 4. unable to dialyze due to severe anemia 5. requests transfer to [facility].
--- NOTE | 2020-09-08 15:03 | PDOC.PALPN ---
Palliative Progress Note - Subjective Daughter at bedside. Nephrology and hospitalist met with patient. She remains to not desire blood transfusion secondary to taoism beliefs. Understanding that she may not survive without the transfusion. - Objective Vital Signs: Vital Signs - Most Recent Temp Pulse Resp BP Pulse Ox 98.8 F 85 18 141/70 H 98 09/08/20 12:00 09/08/20 12:00 09/08/20 12:00 09/08/20 13:26 09/08/20 12:00 - Physical Exam Constitutional: ill appearing HEENT: moist MMs, sclera anicteric Respiratory: unlabored breathing Cardiovascular: RRR Gastrointestinal: soft, non-tender Musculoskeletal: no clubbing, no edema Neurology: moves all 4 limbs, no focal deficits Skin: cap refill <2 seconds Psychiatric: A&O x 3, depressed - Assessment (1) Palliative care encounter Code(s): Z51.5 - ENCOUNTER FOR PALLIATIVE CARE Current Visit: Yes Status: Acute (2) Acute kidney failure Current Visit: Yes Status: Acute (3) Anemia Code(s): D64.9 - ANEMIA, UNSPECIFIED Current Visit: Yes Status: Acute (4) Hypercalcemia Code(s): E83.52 - HYPERCALCEMIA Current Visit: Yes Status: Acute (5) Myeloma Code(s): C90.00 - MULTIPLE MYELOMA NOT HAVING ACHIEVED REMISSION Current Visit: Yes Status: Acute - Plan Plan: Neutropenic, HCG 5.8 procrit given , next dose 09/13/2020. Refusing blood transfusion Needing dialysis, unable to tolerate dialysis secondary to disease processes and subsequent anemia [facility] refused transfer Patient requested transfer to [facility], pending. Palliative care will currently sign off. Goal of care has been addressed and patient and family are currently seeking further aggressive care. Please re consult if we can revisit goal of care, complex decision making, prognosis disease assist. Thank you for this very appropriate consult. [25] minutes spent on this encounter with >50% of the time in counseling and coordination of care. - ROS Constitutional: alert, weakness ENT: other (Denies throat irritation, congestion) Cardiology: other (Denies chest pain, intermittant palpitations) Genitourinary: other
[2020-09-08] MEDS: HumaLOG 300 UNITS/3 ML VIAL SC PRN (16:57)
[2020-09-08] MEDS: traMADol HCl 50 MG TAB PO PRN (21:29)
[2020-09-09 06:36] LABS: Hemoglobin 5.8 g/dL (12.0-16.0); Mean Corpuscular HGB CONC 35.7 g/dL (32.0-36.0); Mean Corpuscular Hemoglobin 34.5 pg (27.0-31.0); Mean Corpuscular Volume 96.7 fL (78.0-98.0); Mean Platelet Volume 8.3 fL (7.4-10.4); Platelet Count 93 thou/uL (130-400); RBC Distribution Width 11.4 % (11.5-14.5); Red Blood Cell (RBC) Count 1.68 mill/uL (4.20-5.40); White Blood Cell (WBC) Count 0.2 thou/uL (4.8-10.8)
[2020-09-09 08:35] LABS: MDiff Complete? YES; Ovalocytes SLIGHT = 2-5 cells (100X) (0-1/hpf); Platelet Morphology Comment Appears Decreased; Polychromasia SLIGHT = 2-3 cells (100X) (0-2/hpf)
[2020-09-09] MEDS: NPH, Human Insulin Isophane 300 UNIT/3 ML VIAL SC SCH ×2 (08:54→20:50)
[2020-09-09] MEDS: Heparin 5,000 UNITS/ML VIAL SC SCH (08:56)
[2020-09-09] MEDS: Polyethylene Glycol 3350 17 GM Packet PO SCH (08:56)
[2020-09-09] MEDS: Senokot 8.6 MG TAB PO SCH ×2 (08:57→21:00)
--- NOTE | 2020-09-09 09:07 | PRG ---
DATE OF SERVICE: SUBJECTIVE: A 44-year-old female being seen for end-stage renal disease. The patient denies nausea, vomiting, or chest pain. OBJECTIVE: GENERAL: The patient is awake and alert. Vital Signs: Afebrile, pulse 97, breathing at 16, blood pressure 137/67. HEENT: Head normocephalic and atraumatic. Eyes intact, no ulcers. Nose intact, no ulcers. Ears intact, no ulcers. Neck: Supple. No JVD. Chest: Symmetrical and clear. Cardiovascular: Shows S1 and S2, no rub, no murmur. Gastrointestinal: Abdomen is soft, bowel sounds positive. Extremities: Show no edema or ulcers. Skin: Shows no rash or petechiae. Musculoskeletal: Shows no joint swelling or stiffness. Genitourinary: Shows no [place] or CVA tenderness. Neurologic: Motor intact. Cranial nerves intact. LABORATORY DATA: Hemoglobin is 5.8. Potassium is pending. ASSESSMENT: Stage 6 chronic kidney disease, plan dialysis based on potassium. Hypertension, stable. Anemia, management per Hematology. Overall prognosis is poor. Job ID: [id number]
--- NOTE | 2020-09-09 13:42 | PDOC.HOSPP ---
- Subjective Encounter Date: 09/09/20 Encounter Time: 13:41 Subjective: No overnight changes. I met with the patient and her this morning. I utilized [employer]IL[employer] and [employer] hydraulic auto jack mechanic line to discuss with the patient about her medical condition. We have attempted x2 to transfer the patient to tertiary care center at her wish but both times we were not successful. Apparently her insurance is not accepted in a lot of places. Patient is now under be a candidate for peritoneal dialysis here. Oncology is holding further treatment pending recovery in her counts. We discussed all of this about the seriousness of her situation. She is still does not want to get any kind of transfusion. - Objective Vital Signs & Weight: Vital Signs (12 hours) Temp Pulse Resp BP Pulse Ox 09/09/20 12:00 99.6 F 88 18 145/76 H 97 09/09/20 08:00 99.3 F 87 16 137/67 96 Weight Admit Weight 128 lb 4.8 oz Weight 140 lb 12.8 oz I&O: 09/08/20 09/09/20 09/10/20 06:59 06:59 06:59 Intake Total 590 1175 Output Total 400 Balance 190 1175 Result Diagrams: 09/09/20 06:11 09/08/20 03:30 Additional Labs: Accuchecks 09/09/20 09/08/20 09/08/20 11:58 21:13 16:30 POC Glucose 86 152 H 170 H Radiology Reviewed by me: Yes EKG Reviewed by me: Yes Hospitalist ROS - Review of Systems Constitutional: reports: weakness Respiratory: reports: shortness of breath, SOB with excertion Gastrointestinal: reports: nausea Neurological: reports: weakness, numbness - Medication Medications: Active Medications Generic Name Dose Route Start Last Admin Trade Name Freq PRN Reason Stop Dose Admin Bisacodyl 10 mg 08/29/20 18:04 09/02/20 20:50 Bisacodyl 5 Mg Tab PO 10 mg DAILYPRN PRN Administration Constipation Epoetin Lazaro-epbx 40,000 unit 09/06/20 17:00 09/06/20 16:51 Epoetin Lazaro-Epbx (Esrd) 40,000 Unit/Ml Vial SC 40,000 unit Q7D SANTOS Administration Ergocalciferol 1.25 mg 09/06/20 09:00 09/06/20 09:27 Ergocalciferol 1.25 Mg(50,000 Units) Cap PO 1.25 mg Q7DAYS SANTOS Administration Heparin Sodium (Porcine) 5,000 units 08/29/20 21:00 09/09/20 08:56 Heparin 5,000 Units/Ml Vial SC Not Given BID SANTOS Insulin Human Lispro 0 units 08/29/20 22:14 09/08/20 16:57 Humalog 300 Units/3 Ml Vial SC 2 unit .MODERATE SLIDING SC PRN Administration Moderate Correctional Scale Insulin Human NPH 12 unit 09/02/20 21:00 09/09/20 08:54 Nph, Human Insulin Isophane 300 Unit/3 Ml Vial SC 12 unit BID SANTOS Administration Insulin Human Regular 0 units 08/29/20 22:14 09/06/20 21:04 Insulin Regular 300 Units/3 Ml Vial SC 5 unit .BEDTIME SLIDING SC PRN Administration Bedtime Correctional Scale Ondansetron HCl 4 mg 08/29/20 18:04 09/04/20 14:59 Ondansetron Pf 4 Mg/2 Ml Vial IVP 4 mg Q6H PRN Administration Nausea/Vomiting Polyethylene Glycol 17 gm 09/05/20 09:00 09/09/20 08:56 Polyethylene Glycol 3350 17 Gm Packet PO 17 gm DAILY SANTOS Administration Senna 2 tab 09/05/20 09:00 09/09/20 08:57 Senokot 8.6 Mg Tab PO 2 tab BID SANTOS Administration Senna/Docusate Sodium 2 tab 08/29/20 18:04 09/01/20 17:01 Senokot S 8.6-50 Mg Tab PO 2 tab BID PRN Administration Constipation Sodium Chloride 10 ml 08/29/20 21:00 09/09/20 08:58 Flush - Normal Saline 10 Ml Syringe IVF 10 ml Q12HR SANTOS Administration Tramadol HCl 50 mg 09/03/20 18:21 09/08/20 21:29 Tramadol Hcl 50 Mg Tab PO 50 mg Q4H PRN Administration Pain 1-5 - Exam General Appearance: awake alert, ill appearing Eye: PERRL, scleral icterus ENT: normocephalic atraumatic, no oropharyngeal lesions Neck: supple, symmetric, no JVD, no thyromegaly Heart: RRR, no murmur, no gallops, no rubs, normal peripheral pulses Respiratory: CTAB, no wheezes, no rales, no ronchi, normal chest expansion Gastrointestinal: soft, non-tender, non-distended Neurological: cranial nerve grossly intact Musculoskeletal: normal tone, normal strength Psychiatric: normal affect, normal behavior, A&O x 3 Hosp A/P - Plan #1. Acute kidney injury. Patient with likely acute kidney injury precipitated by the multiple myeloma. She is in need of dialysis however she is very anemic. Her hemoglobin is only 6.1 and dialyzing her will be very risky. Nephrology evaluation is ongoing and I will defer to them about potential inte rventions. 09/07/2020. Nephrology now will consider peritoneal dialysis. 09/09/2020. Peritoneal dialysis is not an option at this time because surgery would not place a PD access catheter due to her counts being very low. 2. Hypercalcemia. This has resolved. 3. Anemia. Likely multifactorial. Suspect related to multiple myeloma versus medication induced. She does look pale on clinical exam but no obvious bleeding noted. Patient does not want blood transfusion as she is a Yazidi. 09/07/2020. She is more anemic today. She continues to refuse blood transfusions. We will honor her wishes. She understand that she is at risk of worsening of her conditions up to and including 4. Pathological fractures. Likely related to the history of multiple myeloma. She is status post left hip joint transfemoral nailing. 5. Multiple myeloma. Defer to medical oncology about ongoing treatment. Patient wants transfer to [facility] [place].
--- NOTE | 2020-09-09 15:34 | PDOC.MOPN ---
Interval History: Patient has no complaints at this time. , Daughter Leslie at bedside. 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 - Vital Signs Vital Signs: Vital Signs (12 hours) Temp Pulse Resp BP Pulse Ox 09/09/20 12:00 99.6 F 88 18 145/76 H 97 09/09/20 08:00 99.3 F 87 16 137/67 96 Weight Admit Weight 128 lb 4.8 oz Weight 140 lb 12.8 oz - Physical Exam HEENT: Atraumatic, PERRLA, EOMI, Mucous membr. moist/pink Lungs: Clear to auscultation Cardiovascular: Regular rate Abdomen: Normal bowel sounds Skin: No rashes, No breakdown, No significant lesion Psych/Mental Status: Mental status NL - Labs Result Diagrams: 09/09/20 06:11 09/08/20 03:30 Lab results: Laboratory Results - last 24 hr 09/09/20 11:58: POC Glucose 86 09/09/20 06:11: WBC 0.2 L*, RBC 1.68 L, Hgb 5.8 L*, Hct 16.3 L, MCV 96.7, MCH 34.5 H, MCHC 35.7, RDW 11.4 L, Plt Count 93 L, MPV 8.3, Neutrophils % (Manual) Not Reportable, Lymphocytes # Not Reportable, Plt Morphology Comment Appears Decreased L, Polychromasia SLIGHT = 2-3 cells, Ovalocytes SLIGHT = 2-5 cells 09/08/20 21:13: POC Glucose 152 H 09/08/20 16:30: POC Glucose 170 H 09/08/20 07:48: Folate 8.30 Status: lab reviewed by me A/P - Problem (1) Acute kidney failure Current Visit: Yes Status: Acute (2) Anemia Current Visit: Yes Code(s): D64.9 - ANEMIA, UNSPECIFIED Status: Acute (3) Myeloma Current Visit: Yes Code(s): C90.00 - MULTIPLE MYELOMA NOT HAVING ACHIEVED REMISSION Status: Acute - Plan Plan: C1D10 cytoxan. We had a long discussion about her medical issues. Her WBC has dropped due to chemotherapy. Prolonged neutropenia due to kidney failure. She is unable to get Velcade SQ due to low ANC. She received a Retacrit injection this weekend with no change in hgb. Due for another shot on Tuesday. Poor response due to extensive disease in bone. Per Nephrology, unable to have dialysis due to anemia. She understands that we currently have no options to help control her disease. O2 and B12 injections will not improve CBC. She continues to decline blood transfusion, despite grave implication. We discussed supporting patient until Tuesday. If no improvement at that time, she would likely need hospice. Also, option to go home on hospice in time for [place]. Could transition to inpatient hospice from home in the next several weeks. She states she does not want to at home. They will discuss with family and let us know tomorrow.
--- NOTE | 2020-09-09 15:45 | PDOC.FMACP ---
Advance Care Planning - Problem (1) Acute kidney failure Status: Acute (2) Anemia Status: Acute Code(s): D64.9 - ANEMIA, UNSPECIFIED (3) Myeloma Status: Acute Code(s): C90.00 - MULTIPLE MYELOMA NOT HAVING ACHIEVED REMISSION - Note Summary: Advanced Care Planning was discussed. The diagnosis, prognosis and goals of care were discussed. Appropriate forms and documentation to accomplish the goals of care were discussed. All questions were answered. The Palliative Care Team will be engaged to assist with completion of any outstanding forms that are needed. Time Spent (mins): 35 (discussed wishes with patient, , and stepdaughter. )
[2020-09-09] MEDS: HumaLOG 300 UNITS/3 ML VIAL SC PRN (17:06)
[2020-09-09] MEDS: traMADol HCl 50 MG TAB PO PRN (20:56)
[2020-09-10] MEDS: Acetaminophen 325 MG TAB PO PRN ×2 (01:13→09:16)
[2020-09-10 06:47] LABS: Hemoglobin 5.5 g/dL (12.0-16.0); Mean Corpuscular HGB CONC 34.6 g/dL (32.0-36.0); Mean Corpuscular Hemoglobin 33.4 pg (27.0-31.0); Mean Corpuscular Volume 96.4 fL (78.0-98.0); Mean Platelet Volume 7.9 fL (7.4-10.4); Platelet Count 118 thou/uL (130-400); RBC Distribution Width 11.6 % (11.5-14.5); Red Blood Cell (RBC) Count 1.64 mill/uL (4.20-5.40); White Blood Cell (WBC) Count 0.3 thou/uL (4.8-10.8)
[2020-09-10 07:02] LABS: Anion Gap 13 mmol/L (10-20); BUN (Urea Nitrogen) 32 mg/dL (7.0-18.7); Calc. Creatinine Clearance 17 mL/min (70-130); Calcium 6.5 mg/dL (7.8-10.44); Carbon Dioxide 22 mmol/L (22-29); Chloride 106 mmol/L (98-107); Glucose 106 mg/dL (70-105); Potassium 4.3 mmol/L (3.5-5.1); Sodium 137 mmol/L (136-145)
[2020-09-10] MEDS: Polyethylene Glycol 3350 17 GM Packet PO SCH (09:15)
[2020-09-10] MEDS: NPH, Human Insulin Isophane 300 UNIT/3 ML VIAL SC SCH (09:16)
[2020-09-10] MEDS: Senokot 8.6 MG TAB PO SCH (09:16)
[2020-09-10 09:30] LABS: MDiff Complete? YES; Platelet Morphology Comment Appears Decreased; Polychromasia SLIGHT = 2-3 cells (100X) (0-2/hpf)
--- NOTE | 2020-09-10 10:43 | PRG ---
DATE OF SERVICE: 09/10/2020 SUBJECTIVE: This is a 44-year-old female, being seen for end-stage renal disease. The patient denies any nausea, vomiting, or chest pain. PHYSICAL EXAMINATION: General: The patient is awake and alert. Vital Signs: Afebrile, pulse 86, breathing at 16, blood pressure 129/67. HEENT: Head normocephalic and atraumatic. Eyes intact, no ulcers. Nose intact, no ulcers. Ears intact, no ulcers. Neck: Supple. No JVD. Chest: Symmetrical and clear. Cardiovascular: Shows S1 and S2, no rub, no murmur. Gastrointestinal: Abdomen is soft, bowel sounds positive. Extremities: Show no edema or ulcers. Skin: Shows no rash or petechiae. Musculoskeletal: Shows no joint swelling or stiffness. Genitourinary: Shows no [place] or CVA tenderness. Neurologic: Motor intact. Cranial nerves intact. LABORATORY DATA: Showed hemoglobin 5.5. Potassium is 4.3. IMPRESSION AND PLAN: 1. Stage 6 chronic kidney disease, stable. 2. Hypertension, stable. 3. Anemia, stable. 4. No indication for dialysis. Job ID: [id number]
[2020-09-10 12:42] VITALS: BP 135/69; TEMP 99.4
[2020-09-10] MEDS: traMADol HCl 50 MG TAB PO PRN (14:28)
--- NOTE | 2020-09-10 15:28 | PDOC.DS.DS ---
Provider - Provider Date of Admission: 08/29/20 19:03 Date of Discharge: 09/10/20 Admitting Provider: Adriana Garcia MD Consultations: Nephrology, Oncology Primary Care Physician: [facility] [[email or web address] Course - Hospital Course Hospital Course: This is a case of a very pleasant but unfortunate 44-year-old woman who recently was diagnosed with multiple myeloma after presenting with diffuse joint pain. She was initiated on chemotherapy. She developed acute kidney injury at multiple electrolyte derangements. In addition she also became pancytopenic. She is a member of the [employer] witness denomination who does not accept any form of blood transfusion. She was followed during this visit by nephrology and oncology department. We had multiple meetings with the patient and her family members about the need for her to be transfused so she can safely receive her treatment. However the patient was very adamant that she does not want any form of transfusion. She was given Procrit by the negative spotter which usually will take a little while to have any effect. The patient eventually decided to go home and pursue treatment in [place] through some family acquaintances. She was discharged today into the care of her family. Resuscitation Status: 09/05/20 11:34 Resuscitation Status Routine Co-Sign Provider: Resuscitation Status: DNAR: NO Resuscitation Discussed with: Anthony Additional comments: confirmed DNAR status/famiy at bedside - Labs Lab Results: 09/10/20 06:19 09/10/20 06:19 Abnormal Lab Results - Last 48 hrs 09/09/20 06:11: WBC 0.2 L*, RBC 1.68 L, Hgb 5.8 L*, Hct 16.3 L, MCH 34.5 H, RDW 11.4 L, Plt Count 93 L, Plt Morphology Comment Appears Decreased L 09/10/20 06:19: WBC 0.3 L*, RBC 1.64 L, Hgb 5.5 L*, Hct 15.8 L, MCH 33.4 H, Plt Count 118 L, Plt Morphology Comment Appears Decreased L 09/10/20 06:19: BUN 32 H, Creatinine 4.10 H, Calcium 6.5 L - Physical Exam Vitals: Vital Signs (12 hours) Temp Pulse Resp BP BP Pulse Ox 09/10/20 12:00 99.4 F 89 16 135/69 97 09/10/20 09:16 99.8 F H 09/10/20 08:00 99.8 F H 86 16 129/67 97 09/10/20 04:00 99.2 F 92 12 128/69 98 Weight Admit Weight 128 lb 4.8 oz Weight 140 lb 12.8 oz Physical Exam: The patient was seen and examined on the day of discharge. Problem - Problem (1) Acute kidney failure Status: Acute (2) Anemia Code(s): D64.9 - ANEMIA, UNSPECIFIED Status: Acute (3) Myeloma Code(s): C90.00 - MULTIPLE MYELOMA NOT HAVING ACHIEVED REMISSION Status: Acute Plan - Discharge Medications Home Medications: Medication Instructions Recorded Confirmed Type Atorvastatin Calcium [Lipitor] 20 mg PO DAILY 08/29/20 08/29/20 History Gabapentin 300 mg PO BID 08/29/20 08/29/20 History Insulin Lispro [Insulin Lispro 6 units SQ TID 08/29/20 08/29/20 History Kwikpen U-100] Isosorbide Mononitrate [Isosorbide 30 mg PO DAILY 08/29/20 08/29/20 History Mononitrate ER] Metoclopramide HCl 10 mg PO TID-WM 08/29/20 08/29/20 History Insulin Glargine,Hum.Rec.Anlog 30 units SQ HS 08/30/20 08/30/20 History [Lantus] Allergies: No Known Allergies Allergy (Verified 08/30/20 00:16) - Discharge Instructions Discharge Instructions:: May try to follow up with cutting department supervisor at [facility] to establish care after discharge: Dr. Mati Perkins [phone] Activity:: Activity as Tolerated, Orthopedic Limitations ([facility] acti vites and Precautions) Nourishment:: Regular Diet - Follow up Plan Referrals: Calvin Burns MD [Active] - 3-4 Weeks [facility] [Primary Care Provider] - Shin Wright MD [Active] - (F/U in the Fracture clinic in 10-14 days, Estelle out in 10-14 days also) Disposition: HOME Quality - Care Measures CORE MEASURES:: N/A
[2020-09-13] MEDS ORDERED: EPOETIN ALFA-EPBX (ESRD) 10,000 UNIT/ML VIAL SC SCH (09:00)
== END 2020-09-10 14:50 | disposition home or self-care (01) | DRG 480 ==
LOC: ERS 14:28 → 2NO 19:03 → ONC 09-03 20:42
PROVIDERS: ADMIT Internal Medicine; ATTEND Hospitalist
PROC: 3E03305 Introduction of Other Antineoplastic into Peripheral Vein, Percutaneous Approach (ICD-10-PCS; 2020-08-30)
PROC: 0QH736Z Insertion of Intramedullary Internal Fixation Device into Left Upper Femur, Percutaneous Approach (ICD-10-PCS; principal; 2020-09-03)
DX: M84.552A Pathological fracture in neoplastic disease, left femur, initial encounter for fracture (principal); N18.6 End stage renal disease; D61.810 Antineoplastic chemotherapy induced pancytopenia; N17.9 Acute kidney failure, unspecified; C90.00 Multiple myeloma not having achieved remission; E87.1 Hypo-osmolality and hyponatremia; E87.2 Acidosis; I12.0 Hypertensive chronic kidney disease with stage 5 chronic kidney disease or end stage renal disease; E83.52 Hypercalcemia; Z51.5 Encounter for palliative care; Z66 Do not resuscitate; Z23 Encounter for immunization; Z20.828 Contact with and (suspected) exposure to other viral communicable diseases; D63.0 Anemia in neoplastic disease; E78.5 Hyperlipidemia, unspecified; E78.00 Pure hypercholesterolemia, unspecified; E86.9 Volume depletion, unspecified; M16.12 Unilateral primary osteoarthritis, left hip; E55.9 Vitamin D deficiency, unspecified; E86.0 Dehydration; E11.22 Type 2 diabetes mellitus with diabetic chronic kidney disease; M25.852 Other specified joint disorders, left hip; E11.65 Type 2 diabetes mellitus with hyperglycemia; T38.0X5A Adverse effect of glucocorticoids and synthetic analogues, initial encounter; T45.1X5A Adverse effect of antineoplastic and immunosuppressive drugs, initial encounter; Z53.29 Procedure and treatment not carried out because of patient's decision for other reasons; K59.00 Constipation, unspecified; E87.5 Hyperkalemia; E83.51 Hypocalcemia; Z79.4 Long term (current) use of insulin; Z79.899 Other long term (current) drug therapy
CPT/HCPCS: 36415; 36416; 71045; 76000; 76770; 80048; 80053; 81003; 81015; 81025; 82306; 82550; 82570; 82607; 82728; 82746; 83036; 83540; 83550; 83690; 83883; 84100; 84156; 84165; 84443; 84550; 85025; 87340; 87635; 90935; 93005; 93306; 93970; C1713; C1751; C1752; G0257; J0630; J0690; J1100; J1644; J1815; J1940; J2405; J2704; J3010; J3490; J7050; J7070; J8540; J9041; J9070; Q5105; S0020; U0003

== ENCOUNTER 2021-10-12 14:08 | Outpatient (CLI) | payer OTHER | END 2021-10-12 14:09 | disposition home or self-care (01) | LOC: BICRAD 14:08 | PROVIDERS: ATTEND Nurse Practitioner Primary Care | DX: C90.00 Multiple myeloma not having achieved remission (principal) | CPT/HCPCS: 77075 ==